=== PATIENT | female | born 1970 | race Caucasian/White ===

== ENCOUNTER 2017-03-13 00:57 | Inpatient (IN) | payer BC, OTHER ==
--- NOTE | 2017-03-13 01:05 | EDM.PDOC ---
ED HPI GENERAL MEDICAL PROBLEM - General Chief Complaint: Respiratory Problem Stated Complaint: COUGH AND CHEST PAIN Time Seen by Provider: 03/13/17 01:05 - History of Present Illness INITIAL COMMENTS - FREE TEXT/NARRATIVE: 46-year-old female presents emergency room with breathing difficulties. Patient states that she became short of breath about the time this month this is progressively been getting worse and it escalated this evening. The patient had an illness shortly after this started where she was coughing up thick sputum and at times it was blood-tinged. This has somewhat improved. However the cough continues she has very sharp chest pain aggravated by coughing and deep inspiration. The patient was using Percocet at home to try and control this. Patient uses her nebulizer with albuterol as needed this doesn't seem to be helping much and she uses her albuterol inhaler this does not seem to be helping much. Patient does not have nausea or vomiting associated with this. She has not been on any antibiotics. The patient is also noticed her blood sugars been more difficult to control. The patient did have some right leg pain about a week ago this lasted 3-4 days it was worse close to the groin anterior surface of the thigh but she had discomfort the full length of the leg. The patient has been using Percocet that she uses on a regular basis for her back for her chest and leg discomfort. Right Upper Chest Pain Score (Numeric/FACES): 10 - Related Data Allergies Allergy/AdvReac Type Severity Reaction Status Date / Time hydromorphone HCl Allergy Intermediate Itching Verified 03/13/17 01:06 [From Dilaudid] levofloxacin Allergy Unknown Cannot Verified 03/13/17 01:06 Remember peanut Allergy Swollen Verified 03/13/17 01:06 Tongue Home Meds: Home Meds Insulin Glarg,Human.Rec.Analog [Lantus] 120 units SUBCUT DAILY 05/18/14 [History ] metFORMIN [Glucophage] 1,000 mg PO DAILY 05/18/14 [History] metFORMIN [metFORMIN XR] 1,500 mg PO DAILY 05/18/14 [History] Albuterol Inhaler. 2 puff INH Q4H PRN 02/15/16 [History] Albuterol Sulfate 2.5 mg IH Q4H PRN #25 ml 02/15/16 [Rx] Zolpidem [Ambien] 10 mg PO BEDTIME PRN 02/15/16 [History] FLUoxetine [PROzac] 20 mg PO DAILY 03/13/17 [History] Insulin Regular, Human [Humulin R] 0 unit SQ BID 03/13/17 [History] oxyCODONE HCl/Acetaminophen [Percocet 10-325 mg Tablet] 1 each PO Q4H PRN [History] Past Medical History Respiratory History: Reports: Asthma Endocrine/Metabolic History: Reports: Diabetes, type I Social & Family History - Tobacco Use Smoking Status *Q: Never Smoker Second Hand Smoke Exposure: No - Alcohol Use Days Per Week of Alcohol Use: 0 - Recreational Drug Use Recreational Drug Use: No ED ROS GENERAL - Review of Systems Review Of Systems: See Below Constitutional: Reports: night sweats. Denies: fever, chills HEENT: Reports: No symptoms Respiratory: Reports: Shortness of Breath, Pleuritic Chest Pain, Cough, Sputum, Hemoptysis Cardiovascular: Reports: Chest pain. Denies: Edema, Palpitations GI/Abdominal: Reports: Abdominal pain (She had some intermittent abdominal discomfort usually after coughing hard) : Reports: no symptoms Musculoskeletal: Reports: back pain (A she believes this is getting worse from coughing) Neurological: Reports: No Symptoms ED EXAM, GENERAL - Physical Exam Exam: See Below Exam Limited By: No limitations General Appearance: alert, other (She has a painful cough) Eye Exam: bilateral eye: normal inspection Ears: normal external exam, normal canal, hearing grossly normal, normal TMs Nose: normal inspection, normal mucosa, no blood Throat/Mouth: Normal inspection, Normal lips, Normal teeth, Normal gums, Normal oropharynx, Normal voice, No airway compromise Head: atraumatic, normocephalic Neck: normal inspection, supple, non-tender, full range of motion. No: lymphadenopathy (L), lymphadenopathy (R) Respiratory/Chest: no respiratory distress, crackles, other (Breath sounds initially hard to hear but after a few deep breaths seemed okay she had some bibasilar crackles that improve with deep breathing she has discomfort with deep breathing). No: chest non-tender, rhonchi, wheezing, stridor, pleural rub Cardiovascular: regular rate, rhythm, no murmur, other (She has some large legs and cannot exclude edema) GI/Abdominal: normal bowel sounds, soft, non tender, no organomegaly, no distention, no abnormal bruit, no mass, other (Significant obesity) Course - Vital Signs Last Recorded V/S: Last Vital Signs Temp 36.6 C 03/13/17 01:02 Pulse 104 H 03/13/17 05:26 Resp 24 H 03/13/17 05:26 BP 110/61 03/13/17 05:26 Pulse Ox 97 03/13/17 05:26 - Orders/Labs/Meds Orders: Active Orders 24 hr Category Date Time Status Patient Status [ADT] Stat ADT 03/13/17 05:12 Ordered EKG Documentation Completion [RC] STAT Care 03/13/17 02:20 Active RT Aerosol Therapy [RC] ASDIRECTED Care 03/13/17 02:19 Active RT Aerosol Therapy [RC] ASDIRECTED Care 03/13/17 03:26 Ordered Ang Chest [CT] Stat Exams 03/13/17 02:31 Taken Chest 1V Frontal [CR] Stat Exams 03/13/17 01:16 Taken CBC W/O DIFF,HEMOGRAM [HEME] MOTH@0700 Lab 03/17/17 07:00 Ordered CBC W/O DIFF,HEMOGRAM [HEME] MOTH@0700 Lab 03/20/17 07:00 Ordered CBC W/O DIFF,HEMOGRAM [HEME] MOTH@0700 Lab 03/24/17 07:00 Ordered CBC W/O DIFF,HEMOGRAM [HEME] MOTH@0700 Lab 03/27/17 07:00 Ordered CBC W/O DIFF,HEMOGRAM [HEME] MOTH@0700 Lab 03/31/17 07:00 Ordered CBC W/O DIFF,HEMOGRAM [HEME] MOTH@0700 Lab 04/03/17 07:00 Ordered Sodium Chloride 0.9% [Normal Saline] 40 ml Med 03/13/17 03:30 Active IV ASDIRECTED Medication Orders Sodium Chloride (Normal Saline) 40 mls @ 4 mls/sec IV ASDIRECTED ELROY Last Admin: 03/13/17 03:32 Dose: 4 mls/sec Labs: Laboratory Tests 03/13/17 03/13/17 03/13/17 Range/Units 01:26 01:26 01:26 WBC 9.89 (3.98-10.04) K/mm3 RBC 5.42 H (3.98-5.22) M/mm3 Hgb 15.2 (11.2-15.7) gm/L Hct 45.3 H (34.1-44.9) % MCV 83.6 (79.4-94.8) fl MCH 28.0 (25.6-32.2) pg MCHC 33.6 (32.2-35.5) g/dl RDW Std Deviation 39.4 (36.4-46.3) fL Plt Count 340 (182-369) K/mm3 MPV 10.1 (9.4-12.3) fl Neutrophils % (Manual) 54 (40-60) % Band Neutrophils % 1 (0-10) % Lymphocytes % (Manual) 31 (20-40) % Atypical Lymphs % 0 % Monocytes % (Manual) 10 (2-10) % Eosinophils % (Manual) 4 (0.7-5.8) % Basophils % (Manual) 0 L (0.1-1.2) Platelet Estimate Adequate RBC Morph Comment Normal PT 9.7 (8.0-13.0) SECONDS INR 0.90 APTT 22 (22-36) SECONDS D-Dimer, Quantitative 0.70 H (0.19-0.59) mg/L Sodium 134 L (136-145) mEq/L Potassium 4.7 (3.5-5.1) mEq/L Chloride 100 (98-107) mEq/L Carbon Dioxide 22 (21-32) mEq/L Anion Gap 16.7 H (5-15) BUN 19 H (7-18) mg/dL Creatinine 1.1 H (0.55-1.02) mg/dL Est Cr Clr Drug Dosing 46.39 mL/min Estimated GFR (MDRD) 54 (>60) mL/min BUN/Creatinine Ratio 17.3 (14-18) Glucose 323 H (74-106) mg/dL Calcium 8.9 (8.5-10.1) mg/dL Total Bilirubin 0.4 (0.2-1.0) mg/dL AST 41 H (15-37) U/L ALT 59 (14-59) U/L Alkaline Phosphatase 109 (46-116) U/L Troponin I < 0.017 (0.00-0.056) ng/mL Total Protein 7.5 (6.4-8.2) g/dl Albumin 3.5 (3.4-5.0) g/dl Globulin 4.0 gm/dL Albumin/Globulin Ratio 0.9 L (1-2) Mycoplasma pneumon IgM Negative (NEGATIVE) Meds: Medications Generic Name Dose Route Start Last Admin Trade Name Milton PRN Reason Stop Dose Admin Sodium Chloride 40 mls @ 4 mls/sec 03/13/17 03:30 03/13/17 03:32 Normal Saline IV 4 mls/sec ASDIRECTED ELROY Administration Discontinued Medications Generic Name Dose Route Start Last Admin Trade Name Milton PRN Reason Stop Dose Admin Albuterol/Ipratropium 3 ml 03/13/17 02:19 03/13/17 02:25 Duoneb 3.0-0.5 Mg/3 Ml NEB 03/13/17 02:20 3 ml ONETIME ONE Administration Albuterol/Ipratropium 3 ml 03/13/17 03:26 03/13/17 03:33 Duoneb 3.0-0.5 Mg/3 Ml NEB 03/13/17 03:27 3 ml ONETIME ONE Administration Diphenhydramine HCl 25 mg 03/13/17 01:17 03/13/17 01:24 Benadryl IVPUSH 03/13/17 01:18 25 mg ONETIME ONE Administration Enoxaparin Sodium 100 mg 03/13/17 05:10 03/13/17 05:16 Lovenox SUBCUT 03/13/17 05:11 100 mg ONETIME ONE Administration Iopamidol 100 ml 03/13/17 02:54 03/13/17 03:29 Isovue-370 (76%) IVPUSH 03/13/17 02:55 100 ml ONETIME ONE Administration Iopamidol 40 ml 03/13/17 02:54 03/13/17 03:29 Isovue-370 (76%) IVPUSH 03/13/17 02:55 40 ml ONETIME ONE Administration Morphine Sulfate 2 mg 03/13/17 01:18 03/13/17 01:24 Morphine IVPUSH 03/13/17 01:19 2 mg ONETIME ONE Administration Morphine Sulfate 4 mg 03/13/17 02:17 03/13/17 02:21 Morphine IVPUSH 03/13/17 02:18 4 mg ONETIME ONE Administration - Re-Assessments/Exams Free Text/Narrative Re-Assessment/Exam: 03/13/17 02:30 Chest x-ray unremarkable labs pending 03/13/17 03:25 Awaiting CTA results. The patient did get a nebulizer treatment and thinks has helped significantly. She think she would benefit from another. Did check her breasts ounces really not wheezing breath sounds are somewhat diminished this could be secondary to her body habitus but we will attempt a second nebulizer. Did consider steroid therapy better blood sugars are high and generally do go up on steroids in the past but this may be needed. 03/13/17 05:29 CTA is not absolutely diagnostic is clearly no central or segmental pulmonary embolism however either due to motion artifact subsegmental pulmonary embolism cannot be excluded. I believe the patient is certainly at high risk for PE with her mild tachycardia mild tachypnea. Awaiting in the patient's leg pain that she had a week or so ago makes this a little more suspicious. The patient had a second nebulizer and this did help. Case discussed with our hospitalist Dr. Groves we will admit the patient start her on Lovenox anticipate lower leg Doppler and possibly repeat CTA Departure - Departure Time of Disposition: 05:05 Disposition: Admitted As Inpatient 67 Clinical Impression: Chest pain - My Orders Last 24 Hours: My Active Orders 03/13/17 01:16 Chest 1V Frontal [CR] Stat 03/13/17 02:19 RT Aerosol Therapy [RC] ASDIRECTED 03/13/17 02:20 EKG Documentation Completion [RC] STAT 03/13/17 02:31 Ang Chest [CT] Stat 03/13/17 03:26 RT Aerosol Therapy [RC] ASDIRECTED 03/13/17 03:30 Sodium Chloride 0.9% [Normal Saline] 40 ml IV ASDIRECTED 03/13/17 05:12 Patient Status [ADT] Stat 03/17/17 07:00 CBC W/O DIFF,HEMOGRAM [HEME] MOTH@0700 03/20/17 07:00 CBC W/O DIFF,HEMOGRAM [HEME] MOTH@0700 03/24/17 07:00 CBC W/O DIFF,HEMOGRAM [HEME] MOTH@0700 03/27/17 07:00 CBC W/O DIFF,HEMOGRAM [HEME] MOTH@0700 03/31/17 07:00 CBC W/O DIFF,HEMOGRAM [HEME] MOTH@0700 04/03/17 07:00 CBC W/O DIFF,HEMOGRAM [HEME] MOTH@0700 - Assessment/Plan Last 24 Hours: My Active Orders 03/13/17 01:16 Chest 1V Frontal [CR] Stat 03/13/17 02:19 RT Aerosol Therapy [RC] ASDIRECTED 03/13/17 02:20 EKG Documentation Completion [RC] STAT 03/13/17 02:31 Ang Chest [CT] Stat 03/13/17 03:26 RT Aerosol Therapy [RC] ASDIRECTED 03/13/17 03:30 Sodium Chloride 0.9% [Normal Saline] 40 ml IV ASDIRECTED 03/13/17 05:12 Patient Status [ADT] Stat 03/17/17 07:00 CBC W/O DIFF,HEMOGRAM [HEME] MOTH@0700 03/20/17 07:00 CBC W/O DIFF,HEMOGRAM [HEME] MOTH@0700 03/24/17 07:00 CBC W/O DIFF,HEMOGRAM [HEME] MOTH@0700 03/27/17 07:00 CBC W/O DIFF,HEMOGRAM [HEME] MOTH@0700 03/31/17 07:00 CBC W/O DIFF,HEMOGRAM [HEME] MOTH@0700 04/03/17 07:00 CBC W/O DIFF,HEMOGRAM [HEME] MOTH@07
[2017-03-13] MEDS ORDERED: diphenhydrAMINE 50 MG/ML SDV IVPUSH ONE (01:17)
[2017-03-13] MEDS ORDERED: Morphine 2 MG/ML Syringe IVPUSH ONE (01:18)
[2017-03-13] MEDS ORDERED: Morphine 4 MG/ML Syringe IVPUSH ONE (02:17)
[2017-03-13] MEDS ORDERED: Albuterol/Ipratropium 3.0-0.5 MG/3 ML Neb Soln NEB ONE ×2 (02:19→03:26)
[2017-03-13] MEDS ORDERED: Sodium Chloride 0.9% 60 ML IV ONE (02:54)
[2017-03-13] MEDS ORDERED: Iopamidol 755 Mg/ML 100 ML Bottle IVPUSH ONE (02:54)
[2017-03-13] MEDS ORDERED: Iopamidol 755 MG/ML 50 ML Bottle IVPUSH ONE (02:54)
[2017-03-13] MEDS ORDERED: Sodium Chloride 0.9% 40 ML IV SCH (03:30)
[2017-03-13] MEDS ORDERED: Enoxaparin 100 MG/1 ML Syringe SUBCUT ONE (05:10)
--- NOTE | 2017-03-13 05:47 | CT ---
CT chest Technique: Multiple axial sections were obtained to the chest was obtained pulmonary angiogram protocol. Intravenous contrast was therefore utilized. Comparison: Previous chest x-rays available dated earlier on the same day. Limitations: Artifact secondary to body habitus and less than optimal opacification of pulmonary arteries. Findings: There are are no filling defects being seen within the main or segmental pulmonary arteries. Smaller subsegmental pulmonary emboli could easily be missed. Mediastinum and hilar regions show no adenopathy or mass. No pericardial thickening is seen. Visualized upper abdominal structures are within normal limits. Lungs are clear. No pleural effusions or pneumothorax is seen. Bone window settings were reviewed which appear within normal limits for the patient's age. Impression: 1. Less than optimal study secondary to patient body habitus as well as less than optimal opacification of the pulmonary arteries. 2. No discrete filling defects seen to indicate pulmonary embolism within the main or segmental branches. Smaller subsegmental pulmonary emboli could easily be missed. If patient has strong symptoms for pulmonary embolism, treatment could be performed and repeat study in 48 hours. 3. No additional abnormality is identified on CT study of the chest. Diagnostic code #3 I agree with preliminary report issued by [facility] (preliminary report dictated on 03/13/17, 5:11 AM Central Time)
[2017-03-13] MEDS ORDERED: Morphine 2 MG/ML Syringe ONE (06:23)
[2017-03-13] MEDS: Morphine 2 MG/ML Syringe IVPUSH PRN ×2 (06:32→19:52)
[2017-03-13] MEDS ORDERED: 50% Dextrose in Water 50 ML Syringe IVPUSH PRN (07:19)
[2017-03-13] MEDS ORDERED: Albuterol 0.083% 2.5 MG/3 ML Neb Soln NEB PRN (07:20)
[2017-03-13] MEDS ORDERED: Magnesium Hydroxide 400 MG/5 ML Susp 30 ML Cup PO PRN (07:30)
[2017-03-13] MEDS ORDERED: Ondansetron 4 MG Tab.DIS PO PRN (07:30)
[2017-03-13] MEDS ORDERED: Ondansetron 4 MG/2 ML SDV IV PRN (07:30)
[2017-03-13] MEDS ORDERED: Docusate Sodium 100 MG Cap PO PRN (07:30)
--- NOTE | 2017-03-13 07:30 | CR ---
Chest: Frontal view of the chest was obtained. Comparison: Previous chest x-ray of 02/15/16. Heart size and mediastinum are within normal limits. Lungs are clear. Bony structures are grossly intact. Impression: 1. Nothing acute is identified on frontal chest x-ray. Diagnostic code #1
[2017-03-13] MEDS: Sodium Chloride 0.9% 1,000 ML IV SCH ×2 (07:34→18:53)
[2017-03-13] MEDS: Acetaminophen/oxyCODONE 325-5 MG Tab PO PRN (07:42)
[2017-03-13] MEDS: Albuterol/Ipratropium 3.0-0.5 MG/3 ML Neb Soln NEB SCH ×3 (08:30→20:33)
[2017-03-13] MEDS: Acetaminophen/oxyCODONE 325-5 MG Tab PO SCH ×3 (08:39→22:02)
[2017-03-13] MEDS: Insulin Detemir 100 Units/ML 3 ML Pen SUBCUT SCH ×2 (08:40→22:14)
[2017-03-13] MEDS: Insulin Aspart 100 Units/ML 3 ML Pen SUBCUT SCH ×4 (08:40→22:14)
[2017-03-13] MEDS: Azithromycin 500 MG in Sodium Chloride 0.9% 250 ML IV SCH (08:41)
[2017-03-13] MEDS: FLUoxetine 20 MG Cap PO SCH (08:43)
[2017-03-13] MEDS ORDERED: Famotidine 20 MG Tab PO SCH (09:00)
[2017-03-13] MEDS ORDERED: Magnesium Sulfate/Water 2 GM in Premix Bag 1 BAG IV ONE (09:39)
[2017-03-13] MEDS ORDERED: Metoprolol Tartrate 5 MG/5 ML SDV IVPUSH ONE (09:43)
[2017-03-13] MEDS ORDERED: Lidocaine 5% 700 MG Patch TOP SCH (09:45)
--- NOTE | 2017-03-13 10:00 | PCM.HP ---
H&P History of Present Illness - General Date of Service: 03/13/17 Admit Problem/Dx: Admission Diagnosis/Problem Admission Diagnosis/Problem Chest pain Source of Information: Patient, Old records History Limitations: Reports: No limitations - History of Present Illness Initial Comments - Free Text/Narative: Jessica is a 46yo female admitted to med/surg telemetry unit for atypical chest pain through the ER early this morning. She tells me she has been generally feeling unwell for 3 weeks with fatigue, generalized sensation of weakness, worsening of her usual chronic LBP, intermittent subjective fevers, chills and sweats. Blood sugars have been more elevated than usual, 200-300 range at home. She has been intermittently nauseous but no vomiting, diarrhea or abdominal pain. She reports chronic intermittent constipation from the percocet that she takes for her LBP, 2 tabs TID. The past 3 days she has developed a cough, productive the last two days and with worsening right sided chest pains the past 1-2 days. She reports the pain is stabbing in nature, feels "like it is going to drop me" when she coughs. She feels SOB with this and has had worsening sensation of ONEILL x 2 weeks as well. She has not been able to do much physically around the house other than go from couch or chair to bathroom or kitchen for at least the last week due to this SOB/ONEILL/fatigue. PMH is significant for IDDM requiring lantus 60units BID and high dose sliding scale coverage also, chronic LBP on narcotic pain medications daily, depression/ anxiety, asthma, obesity. She is a Full Code. Onset of Symptoms: Reports: gradual (3 weeks of feeling "sick", with worsening fatigue, cough, SOB, ONEILL, palpiatations worse x 2-3 days) Location: Reports: chest Quality: Reports: Stabbing (rt side of chest - worst with coughing spells) Severity: severe Improves with: Reports: Rest Worsens with: Reports: Other (coughing), Movement Associated Symptoms: Reports: chest pain, cough, cough w sputum, fever/chills, headaches, loss of appetite, shortness of breath. Denies: nausea/vomiting, rash , syncope Right Upper Chest Pain Score (Numeric/FACES): 8 - Related Data Allergies/Adverse Reactions: Allergies Allergy/AdvReac Type Severity Reaction Status Date / Time hydromorphone HCl Allergy Intermediate Itching Verified 03/13/17 01:06 [From Dilaudid] levofloxacin Allergy Unknown Cannot Verified 03/13/17 01:06 Remember peanut Allergy Swollen Verified 03/13/17 01:06 Tongue Home Medications: Home Meds Insulin Glarg,Human.Rec.Analog [Lantus] 120 units SUBCUT DAILY 05/18/14 [History ] metFORMIN [Glucophage] 1,000 mg PO DAILY 05/18/14 [History] metFORMIN [metFORMIN XR] 1,500 mg PO DAILY 05/18/14 [History] Albuterol Inhaler. 2 puff INH Q4H PRN 02/15/16 [History] Albuterol Sulfate 2.5 mg IH Q4H PRN #25 ml 02/15/16 [Rx] Zolpidem [Ambien] 10 mg PO BEDTIME PRN 02/15/16 [History] FLUoxetine [PROzac] 20 mg PO DAILY 03/13/17 [History] Insulin Regular, Human [Humulin R] 0 unit SQ BID 03/13/17 [History] oxyCODONE HCl/Acetaminophen [Percocet 10-325 mg Tablet] 1 each PO TID 03/13/17 [ History] Past Medical History HEENT History: Reports: Other (see below) Other HEENT History: Wears glasses, at home Respiratory History: Reports: Asthma, SOB Gastrointestinal History: Reports: Chronic constipation, GERD Genitourinary History: Reports: Pyelonephritis, Renal calculus, UTI, recurrent PORTFOLIO DIRECTOR History: Reports: Musculoskeletal History: Reports: Back pain, chronic, Neck pain, chronic, Other (see below) Other Musculoskeletal History: Right torn rotator cuff, not repaired Psychiatric History: Reports: Anxiety, Depression Endocrine/Metabolic History: Reports: Diabetes, type II, IDDM - Infectious Disease History Infectious Disease History: Reports: Chicken pox - Past Surgical History GI Surgical History: Reports: Colonoscopy, Other (see below) Other GI Surgeries/Procedures: Hernia repair with mesh Female Surgical History: Reports: section, Hysterectomy Social & Family History - Family History Family Medical History: Noncontributory - Tobacco Use Smoking Status *Q: Former Smoker Used Tobacco, but Quit: No Second Hand Smoke Exposure: Yes - Caffeine Use Caffeine Use: Reports: Coffee, Tea - Alcohol Use Days Per Week of Alcohol Use: 0 - Recreational Drug Use Recreational Drug Use: No H&P Review of Systems - Review of Systems: Review Of Systems: See Below General: Reports: fever (subjective at home x 2-3 days prior to admit), chills, weakness, fatigue (x 3+ weeks), decreased appetite HEENT: Reports: no symptoms Pulmonary: Reports: Shortness of Breath, Pleuritic Chest Pain, Cough Cardiovascular: Reports: chest pain, palpitations, dyspnea on exertion ( worsening over 2-3 wks), lightheadedness (x 2-3 days). Denies: orthopnea, syncope Gastrointestinal: Reports: Constipation (chronic), Nausea. Denies: Abdominal pain, Black stool, Bloody stool, Diarrhea, Hematochezia, Melena, Vomiting Genitourinary: Reports: no symptoms Musculoskeletal: Reports: back pain (chronic- takes 2 percocet TID at home), other (reports rt leg pain with ? swelling earlier in the week) Skin: Reports: no symptoms. Denies: rash Psychiatric: Reports: anxiety Neurological: Reports: No Symptoms Exam - Exam Exam: See Below - Vital Signs Vital Signs: Last Vital Signs Temp 98.2 F 03/13/17 06:18 Pulse 103 H 03/13/17 06:18 Resp 20 03/13/17 06:14 BP 112/45 L 03/13/17 06:14 Pulse Ox 95 03/13/17 08:31 Weight: 273 lb 8 oz - Exam Quality Assessment: DVT prophylaxis General: alert, oriented, cooperative, mild distress (pain to rt chest with coughing, acute on chronic back pain and anxious ) HEENT: Conjunctiva clear, EOMI, Hearing intact, Mucosa moist & pink, Nares patent, Posterior pharynx clear, Pupils equal, Pupils reactive Neck: supple, trachea midline Lungs: Normal respiratory effort, Decreased breath sounds (mid to lower lobes; no other adventitious sounds noted) Cardiovascular: regular rhythm, tachycardia (rate 110-120's during my exam) Abdomen: normal bowel sounds, soft, other (round, obese). No: guarding, rigidity, rebound, tenderness (Female) Exam: Deferred Rectal (Female) Exam: Deferred Extremities: edema (trace to ankles/pedal). No: calf tenderness Peripheral Pulses: 1+: dorsalis pedis (L), dorsalis pedis (R) Skin: warm, dry, intact Neurological: cranial nerves intact Neuro Extensive - Mental Status: alert, oriented x3, normal cognition, memory intact Neuro Extensive - Motor, Sensory, Reflexes: CN II-XII intact Psychiatric: alert, normal affect, normal mood, anxious (slightly anxious) - Patient Data Lab Results last 24 hrs: Laboratory Results - last 24 hr 03/13/17 03/13/17 03/13/17 Range/Units 06:30 07:51 08:10 WBC 10.19 H (3.98-10.04) K/mm3 RBC 4.92 (3.98-5.22) M/mm3 Hgb 13.6 (11.2-15.7) gm/L Hct 41.1 (34.1-44.9) % MCV 83.5 (79.4-94.8) fl MCH 27.6 (25.6-32.2) pg MCHC 33.1 (32.2-35.5) g/dl RDW Std Deviation 38.8 (36.4-46.3) fL Plt Count 399 H (182-369) K/mm3 MPV 9.6 (9.4-12.3) fl Neut % (Auto) 55.0 (34.0-71.1) % Lymph % (Auto) 33.5 (19.3-51.7) % Day % (Auto) 9.6 (4.7-12.5) % Eos % (Auto) 1.1 (0.7-5.8) Baso % (Auto) 0.4 (0.1-1.2) % Neut # (Auto) 5.61 (1.56-6.13) K/mm3 Lymph # (Auto) 3.41 (1.18-3.74) K/mm3 Day # (Auto) 0.98 H (0.24-0.36) K/mm3 Eos # (Auto) 0.11 (0.04-0.36) K/mm3 Baso # (Auto) 0.04 (0.01-0.08) K/mm3 Sodium (136-145) mEq/L Potassium (3.5-5.1) mEq/L Chloride (98-107) mEq/L Carbon Dioxide (21-32) mEq/L Anion Gap (5-15) BUN (7-18) mg/dL Creatinine (0.55-1.02) mg/dL Est Cr Clr Drug Dosing mL/min Estimated GFR (MDRD) (>60) mL/min BUN/Creatinine Ratio (14-18) Glucose (74-106) mg/dL POC Glucose 295 H (70-105) mg/dL Calcium (8.5-10.1) mg/dL Magnesium (1.8-2.4) mg/dl Troponin I (0.00-0.056) ng/mL C-Reactive Protein (<1.0) mg/dL B-Natriuretic Peptide (0-100) pg/mL Urine Color Yellow (Yellow) Urine Appearance Clear (Clear) Urine pH 5.5 (5.0-8.0) Ur Specific [place] 1.015 (1.005-1.030) Urine Protein Trace H (Negative) Urine Glucose (UA) 2+ H (Negative) Urine Ketones Trace H (Negative) Urine Occult Blood Negative (Negative) Urine Nitrite Negative (Negative) Urine Bilirubin Negative (Negative) Urine Urobilinogen 0.2 (0.2-1.0) Ur Leukocyte Esterase Negative (Negative) Urine RBC Not seen (0-5) /hpf Urine WBC 0-5 (0-5) /hpf Ur Epithelial Cells 0-5 (0-5) /hpf Urine Bacteria Few (FEW) /hpf Urine Mucus Not seen (FEW) /hpf 03/13/17 03/13/17 Range/Units 08:10 08:10 WBC (3.98-10.04) K/mm3 RBC (3.98-5.22) M/mm3 Hgb (11.2-15.7) gm/L Hct (34.1-44.9) % MCV (79.4-94.8) fl MCH (25.6-32.2) pg MCHC (32.2-35.5) g/dl RDW Std Deviation (36.4-46.3) fL Plt Count (182-369) K/mm3 MPV (9.4-12.3) fl Neut % (Auto) (34.0-71.1) % Lymph % (Auto) (19.3-51.7) % Day % (Auto) (4.7-12.5) % Eos % (Auto) (0.7-5.8) Baso % (Auto) (0.1-1.2) % Neut # (Auto) (1.56-6.13) K/mm3 Lymph # (Auto) (1.18-3.74) K/mm3 Day # (Auto) (0.24-0.36) K/mm3 Eos # (Auto) (0.04-0.36) K/mm3 Baso # (Auto) (0.01-0.08) K/mm3 Sodium 134 L (136-145) mEq/L Potassium 4.1 (3.5-5.1) mEq/L Chloride 100 (98-107) mEq/L Carbon Dioxide 24 (21-32) mEq/L Anion Gap 14.1 (5-15) BUN 18 (7-18) mg/dL Creatinine 0.9 (0.55-1.02) mg/dL Est Cr Clr Drug Dosing 56.70 mL/min Estimated GFR (MDRD) > 60 (>60) mL/min BUN/Creatinine Ratio 20.0 H (14-18) Glucose 297 H (74-106) mg/dL POC Glucose (70-105) mg/dL Calcium 8.6 (8.5-10.1) mg/dL Magnesium 1.6 L (1.8-2.4) mg/dl Troponin I < 0.017 (0.00-0.056) ng/mL C-Reactive Protein 1.0 (<1.0) mg/dL B-Natriuretic Peptide < 15 (0-100) pg/mL Urine Color (Yellow) Urine Appearance (Clear) Urine pH (5.0-8.0) Ur Specific [place] (1.005-1.030) Urine Protein (Negative) Urine Glucose (UA) (Negative) Urine Ketones (Negative) Urine Occult Blood (Negative) Urine Nitrite (Negative) Urine Bilirubin (Negative) Urine Urobilinogen (0.2-1.0) Ur Leukocyte Esterase (Negative) Urine RBC (0-5) /hpf Urine WBC (0-5) /hpf Ur Epithelial Cells (0-5) /hpf Urine Bacteria (FEW) /hpf Urine Mucus (FEW) /hpf Result Diagrams: 03/13/17 08:10 03/13/17 08:10 *Q Meaningful Use (ADM) - VTE *Q VTE Criteria *Q: - Stroke *Q Stroke Criteria *Q: - AMI *Q AMI Criteria *Q: - Problem List (1) Chest pain, pleuritic SNOMED Code(s): 0926021 ICD Code: R07.81 - PLEURODYNIA Status: Acute Priority: High Current Visit: Yes (2) IDDM (insulin dependent diabetes mellitus) SNOMED Code(s): 54070783 ICD Code: E11.9 - TYPE 2 DIABETES MELLITUS WITHOUT COMPLICATIONS; Z79.4 - MCFP (CURRENT) USE OF INSULIN Status: Chronic Priority: High Current Visit: Yes (3) Obesity SNOMED Code(s): 364452053 ICD Code: E66.9 - OBESITY, UNSPECIFIED Status: Chronic Priority: High Current Visit: Yes Qualifiers: Obesity type: unspecified obesity type Obesity severity: morbid Qualified Code(s): E66.01 - Morbid (severe) obesity due to excess calories (4) Tachycardia SNOMED Code(s): 0494323 ICD Code: R00.0 - TACHYCARDIA, UNSPECIFIED Status: Acute Priority: High Current Visit: Yes Problem List Initiated/Reviewed/Updated: Yes Orders Last 24hrs: Active Orders 24 hr Category Date Time Status Patient Status [ADT] Routine ADT 03/13/17 07:29 Active Acapella [RT Chest Physiotherapy] [RC] Q2HWA Care 03/13/17 07:21 Active Antiembolic Devices [RC] 09,21 Care 03/13/17 07:32 Active Blood Glucose Check, Bedside [RC] QIDACANDBED Care 03/13/17 06:55 Active Cardiac Monitoring [RC] CONTINUOUS Care 03/13/17 07:30 Active Height and Weight [RC] 04 Care 03/13/17 07:30 Active Intake and Output [RC] QSHIFT Care 03/13/17 07:30 Active Oxygen Therapy [RC] PRN Care 03/13/17 07:29 Active Oxygen Therapy [RC] PRN Care 03/13/17 07:30 Active RT Aerosol Therapy [RC] .PRN Care 03/13/17 07:20 Active RT Incentive Spirometry [RC] Q2HWA Care 03/13/17 07:21 Active Up With Assistance [RC] QSHIFT Care 03/13/17 06:28 Active VTE/DVT Education [RC] DAILY Care 03/13/17 07:30 Active Vital Signs [RC] Q4H Care 03/13/17 07:29 Active Consult to Case Management [CONS] Routine Cons 03/13/17 07:23 Active Consult to Diabetic Nurse Specialist [CONS] Routine Cons 03/13/17 07:24 Active Consult to Sap Consultant [CONS] Routine Cons 03/13/17 07:26 Active Consult to Occupational Therapy [OT Evaluation and Cons 03/13/17 07:23 Active Treatment] [CONS] Routine Consult to Car Lubricator [CONS] Routine Cons 03/13/17 07:23 Active PT Evaluation and Treatment [CONS] Routine Cons 03/13/17 07:23 Active ADA Diabetic [[place] [employer] Diet] [DIET Diet 03/13/17 Breakfast Active ] Heart Healthy Diet [DIET] Diet 03/13/17 Lunch Active Venous Doppler Lwr Ext Bi [US] Routine Exams 03/13/17 06:45 Taken A1C [GLYCOSYLATED HEMOGLOBIN,HGBA1C] [CHEM] Routine Lab 03/13/17 09:42 Ordered CULTURE SPUTUM + SMEAR [RM] Routine Lab 03/13/17 06:50 Uncollected STREP PNEUMONIAE ANTIGEN [MREF] Routine Lab 03/13/17 06:49 Ordered TROPONIN I [CHEM] Timed Lab 03/13/17 12:00 Ordered Acetaminophen/oxyCODONE [Percocet 325-5 MG] Med 03/13/17 09:00 Active 2 tab PO TID Albuterol [Proventil Neb Soln] Med 03/13/17 07:20 Active 2.5 mg NEB Q6HRRT PRN Albuterol/Ipratropium [DuoNeb 3.0-0.5 MG/3 ML] Med 03/13/17 09:00 Active 3 ml NEB Q6HRRT Azithromycin [Zithromax] 500 mg Med 03/13/17 08:00 Active Sodium Chloride 0.9% [Normal Saline] 250 ml IV Q24H Dextrose 50% in Water Med 03/13/17 07:19 Active 50 ml IVPUSH ASDIRECTED PRN Docusate Sodium [Colace] Med 03/13/17 07:30 Active 100 mg PO BID PRN FLUoxetine [PROzac] Med 03/13/17 09:00 Active 20 mg PO DAILY Famotidine [Pepcid] Med 03/13/17 09:00 Active 20 mg PO DAILY Insulin Aspart [NovoLOG] Med 03/13/17 11:00 Active See Protocol SUBCUT QIDACANDBED Insulin Detemir [Levemir] Med 03/13/17 09:00 Active 60 unit SUBCUT BID Ketorolac [Toradol] Med 03/13/17 09:45 Ordered 30 mg IVPUSH Q6H Lidocaine 5% [Lidoderm 5%] Med 03/13/17 09:45 Ordered 700 mg TOP Q24H Magnesium Hydroxide [Milk of Magnesia] Med 03/13/17 07:30 Active 30 ml PO Q12H PRN Magnesium Sulfate/Water [Magnesium Sulfate 2 GM in Med 03/13/17 09:39 Ordered Water 50 ML] 2 gm Premix Bag 1 bag IV ONETIME Metoprolol Tartrate [Lopressor] Med 03/13/17 09:43 Once 5 mg IVPUSH ONETIME ONE Morphine Med 03/13/17 06:19 Active 2 mg IVPUSH Q3H PRN Ondansetron [Zofran ODT] Med 03/13/17 07:30 Active 4 mg PO Q4H PRN Ondansetron [Zofran] Med 03/13/17 07:30 Active 4 mg IV Q4H PRN Sodium Chloride 0.9% [Normal Saline] 1,000 ml Med 03/13/17 07:00 Active IV ASDIRECTED SCD [Sequential Compression Device] [OM.PC] Routine Oth 03/13/17 08:20 Ordered SCD [Sequential Compression Device] [OM.PC] Routine Oth 03/13/17 08:21 Ordered Code Status [Resuscitation Status] Routine Resus Stat 03/13/17 06:27 Ordered Medication Orders Albuterol (Proventil Neb Soln) 2.5 mg NEB Q6HRRT PRN PRN Reason: SOB/wheezing Albuterol/Ipratropium (Duoneb 3.0-0.5 Mg/3 Ml) 3 ml NEB Q6HRRT [facility] Last Admin: 03/13/17 08:30 Dose: 3 ml Dextrose/Water (Dextrose 50% In Water) 50 ml IVPUSH ASDIRECTED PRN PRN Reason: Hypoglycemia Docusate Sodium (Colace) 100 mg PO BID PRN PRN Reason: Constipation Famotidine (Pepcid) 20 mg PO DAILY [facility] Last Admin: 03/13/17 08:40 Dose: 20 mg Fluoxetine HCl (Prozac) 20 mg PO DAILY [facility] Last Admin: 03/13/17 08:43 Dose: 20 mg Sodium Chloride (Normal Saline) 1,000 mls @ 100 mls/hr IV ASDIRECTED [facility] Last Admin: 03/13/17 07:34 Dose: 100 mls/hr Azithromycin 500 mg/ Sodium (Chloride) 250 mls @ 250 mls/hr IV Q24H [facility] Last Admin: 03/13/17 08:41 Dose: 250 mls/hr Magnesium Sulfate 2 gm/ Premix 50 mls @ 25 mls/hr IV ONETIME ONE Stop: 03/13/17 11:38 Insulin Aspart (Novolog) 0 unit SUBCUT QIDACANDBED [facility] PRN Reason: Protocol Last Admin: 03/13/17 08:40 Dose: 25 units Insulin Detemir (Levemir) 60 unit SUBCUT BID [facility] Last Admin: 03/13/17 08:40 Dose: 60 units Ketorolac Tromethamine (Toradol) 30 mg IVPUSH Q6H [facility] Stop: 03/13/17 21:46 Lidocaine (Lidoderm 5%) 700 mg TOP Q24H [facility] Magnesium Hydroxide (Milk Of Magnesia) 30 ml PO Q12H PRN PRN Reason: Constipation Morphine Sulfate (Morphine) 2 mg IVPUSH Q3H PRN PRN Reason: Pain Last Admin: 03/13/17 06:32 Dose: 2 mg Ondansetron HCl (Zofran Odt) 4 mg PO Q4H PRN PRN Reason: nausea, able to take PO Ondansetron HCl (Zofran) 4 mg IV Q4H PRN PRN Reason: Nausea/Vomiting Oxycodone/Acetaminophen (Percocet 325-5 Mg) 2 tab PO TID [facility] Last Admin: 03/13/17 08:39 Dose: 2 tab Assessment/Plan Comment:: I/P: Pleuritic rt sided chest pain: etiology uncertain at this time-- suspect ? small PE vs acute bronchitis with pleurisy -CTA negative but inconclusive for small vessels- consider repeat in 2 days -DVT study of bilat LE is negative -Lovenox SQ -Zithromax for antiinflammatory effect -Toradol Q6 hrs x 3 doses -Pain medication PRN - takes percocet 2 po TID at home so will expect narcotic tolerance -Consider steroid for antiinflammatory but d/t uncontrolled DM with worsened sugars over the past 3 weeks and high insulin requirements will try to avoid -Troponins x 2 negative -Risks: obesity, recent long car travel (to and from [place]), sedentary, feeling unwell x 3 weeks, chronic LBP, IDDM Tachycardia: -Sinus tachycardia -b/p WNL to borderline hypotensive -Cont on tele -Follow troponins- negative thus far -Lopressor PRN for HR >130bpm -Echo ordered today IDDM: -A1C today -AC and HS accuchecks -Cont home insulin doses- 60 units lantus BID with sliding scale-- home dose is very high for sliding scale -CDE consult -Sap Consultant consult -ADA/heart healthy diet Obesity: -Sap Consultant consult -Diet as above Other: CM/SW for assist with DC planning PT/OT- deconditioned GI prophylax DVT prophylax: SCD's and lovenox Cont other home meds Patient is Full Code status
[2017-03-13] MEDS: Ketorolac 30 MG/ML SDV IVPUSH SCH ×3 (11:00→22:08)
--- NOTE | 2017-03-13 11:13 | US ---
Bilateral lower extremity deep venous ultrasound: Duplex and color flow imaging was obtained of the right and left common femoral, proximal greater saphenous, superficial femoral, popliteal, posterior tibial and peroneal veins. Findings: Normal phasic flow, augmentation and compression are seen. Impression: 1. No findings of deep venous thrombosis are seen within either the right or left lower extremity. Diagnostic code #1
[2017-03-13] MEDS ORDERED: Enoxaparin 120 MG/0.8 ML Syringe SUBCUT SCH (12:15)
[2017-03-13] MEDS ORDERED: Budesonide 0.5 MG/2 ML Neb Susp NEB SCH ×2 (12:15→15:00)
[2017-03-13] MEDS: Budesonide 0.5 MG/2 ML Neb Susp NEB SCH (20:33)
[2017-03-13] MEDS ORDERED: Rosuvastatin 10 MG Tab PO SCH (21:00)
[2017-03-13] MEDS: Famotidine 20 MG Tab PO SCH (22:02)
[2017-03-13] MEDS: Enoxaparin 120 MG/0.8 ML Syringe SUBCUT SCH (22:02)
[2017-03-14] MEDS: Albuterol/Ipratropium 3.0-0.5 MG/3 ML Neb Soln NEB SCH ×3 (03:16→14:15)
[2017-03-14] MEDS: Sodium Chloride 0.9% 1,000 ML IV SCH (05:10)
[2017-03-14] MEDS: Insulin Aspart 100 Units/ML 3 ML Pen SUBCUT SCH ×2 (06:53→11:54)
[2017-03-14] MEDS: Budesonide 0.5 MG/2 ML Neb Susp NEB SCH (08:25)
--- NOTE | 2017-03-14 08:27 | CR ---
Chest: Two views of the chest were obtained. Comparison: Previous chest x-ray of 03/13/17. Heart size and mediastinum are normal. Lungs are clear. Bony structures are unremarkable. Impression: 1. Nothing acute is identified on two-view chest x-ray. Diagnostic code #1
[2017-03-14] MEDS: Insulin Detemir 100 Units/ML 3 ML Pen SUBCUT SCH (10:02)
[2017-03-14] MEDS: Azithromycin 500 MG in Sodium Chloride 0.9% 250 ML IV SCH (10:02)
[2017-03-14] MEDS: Enoxaparin 120 MG/0.8 ML Syringe SUBCUT SCH (10:05)
[2017-03-14] MEDS: Acetaminophen/oxyCODONE 325-5 MG Tab PO PRN (10:06)
[2017-03-14] MEDS: FLUoxetine 20 MG Cap PO SCH (10:06)
[2017-03-14] MEDS: Famotidine 20 MG Tab PO SCH (10:06)
[2017-03-14] MEDS: Morphine 2 MG/ML Syringe IVPUSH PRN (12:18)
--- NOTE | 2017-03-14 12:55 | PCM.PN ---
- General Info Date of Service: 03/14/17 Admission Dx/Problem (Free Text): Admission Diagnosis/Problem Admission Diagnosis/Problem Chest pain Patient is seen this morning with present in room, as well as nurses, Domitila and Mahnaz. Patient continues to have "excruciating" right sided chest pain, worse with coughing and inspiration. Repeat CXR this am is unremarkable, no rib fx noted. She is getting zithromax, neb/rt tx's, pain medications. She reports "maybe 25% " improvement of the pain since yesterday. Nursing confirmed percocet dosing with her pharmacy this morning; one tab TID. Yesterday she told nursing she was taking 2 tabs TID at home and this morning told nursing she was taking 3 tabs TID at home. I decreased her dose to one tab TID. She is upset about pain medication regimen now. During my visit with her this morning she tells me she has a pain contract with her pain management doctor in [place], this is the first I or any nurses on Med/Surg unit, or Dr. Groves have heard about a pain contract existing. Functional Status: Reports: tolerating diet, ambulating, urinating - Review of Systems General: Denies: Fever HEENT: Reports: no symptoms Pulmonary: Reports: shortness of breath, pleuritic chest pain (rt sided with inspiration and coughing), cough. Denies: sputum, hemoptysis Cardiovascular: Reports: No Symptoms Gastrointestinal: Reports: No symptoms Genitourinary: Reports: no symptoms Musculoskeletal: Reports: back pain (chronic) Skin: Reports: no symptoms Neurological: Reports: No Symptoms Psychiatric: Reports: no symptoms, anxiety, agitation (she is irritated and agitated when talking about pain medications/pain contract, states "why am I even here if I can't get my pain under control". ), other (patient has unrealistic expectations re: pain medication regimen and management. She has chronic pain and is on pain contract, is expecting pain contol here when she does not have pain control at home. Has told various stories to different people re: pain medication dosing and just now stating she has pain contract.) - Patient Data Vitals - most recent: Last Vital Signs Temp 98.2 F 03/14/17 08:26 Pulse 83 03/14/17 08:26 Resp 16 03/14/17 08:26 BP 104/65 03/14/17 08:26 Pulse Ox 97 03/14/17 08:34 Weight - most recent: 282 lb 4.8 oz I&O - last 24 hours: Intake & Output 03/13/17 03/14/17 03/14/17 22:59 06:59 14:59 Intake Total 865 482 420 Output Total 575 Balance 290 482 420 Lab Results last 24 hrs: Laboratory Results - last 24 hr 03/13/17 03/13/17 03/13/17 Range/Units 12:57 17:07 22:13 WBC (3.98-10.04) K/mm3 RBC (3.98-5.22) M/mm3 Hgb (11.2-15.7) gm/L Hct (34.1-44.9) % MCV (79.4-94.8) fl MCH (25.6-32.2) pg MCHC (32.2-35.5) g/dl RDW Std Deviation (36.4-46.3) fL Plt Count (182-369) K/mm3 MPV (9.4-12.3) fl Neut % (Auto) (34.0-71.1) % Lymph % (Auto) (19.3-51.7) % [place] % (Auto) (4.7-12.5) % Eos % (Auto) (0.7-5.8) Baso % (Auto) (0.1-1.2) % Neut # (Auto) (1.56-6.13) K/mm3 Lymph # (Auto) (1.18-3.74) K/mm3 [place] # (Auto) (0.24-0.36) K/mm3 Eos # (Auto) (0.04-0.36) K/mm3 Baso # (Auto) (0.01-0.08) K/mm3 Sodium (136-145) mEq/L Potassium (3.5-5.1) mEq/L Chloride (98-107) mEq/L Carbon Dioxide (21-32) mEq/L Anion Gap (5-15) BUN (7-18) mg/dL Creatinine (0.55-1.02) mg/dL Est Cr Clr Drug Dosing mL/min Estimated GFR (MDRD) (>60) mL/min BUN/Creatinine Ratio (14-18) Glucose (74-106) mg/dL POC Glucose 237 H 301 H (70-105) mg/dL Calcium (8.5-10.1) mg/dL Magnesium (1.8-2.4) mg/dl Troponin I < 0.017 (0.00-0.056) ng/mL C-Reactive Protein (<1.0) mg/dL 03/14/17 03/14/17 03/14/17 Range/Units 05:38 05:38 05:38 WBC 6.14 (3.98-10.04) K/mm3 RBC 4.45 (3.98-5.22) M/mm3 Hgb 12.2 (11.2-15.7) gm/L Hct 37.9 (34.1-44.9) % MCV 85.2 (79.4-94.8) fl MCH 27.4 (25.6-32.2) pg MCHC 32.2 (32.2-35.5) g/dl RDW Std Deviation 38.9 (36.4-46.3) fL Plt Count 346 (182-369) K/mm3 MPV 10.0 (9.4-12.3) fl Neut % (Auto) 49.1 (34.0-71.1) % Lymph % (Auto) 36.0 (19.3-51.7) % [place] % (Auto) 9.8 (4.7-12.5) % Eos % (Auto) 4.2 (0.7-5.8) Baso % (Auto) 0.7 (0.1-1.2) % Neut # (Auto) 3.02 (1.56-6.13) K/mm3 Lymph # (Auto) 2.21 (1.18-3.74) K/mm3 [place] # (Auto) 0.60 H (0.24-0.36) K/mm3 Eos # (Auto) 0.26 (0.04-0.36) K/mm3 Baso # (Auto) 0.04 (0.01-0.08) K/mm3 Sodium 136 (136-145) mEq/L Potassium 4.3 (3.5-5.1) mEq/L Chloride 103 (98-107) mEq/L Carbon Dioxide 22 (21-32) mEq/L Anion Gap 15.3 H (5-15) BUN 22 H (7-18) mg/dL Creatinine 0.8 (0.55-1.02) mg/dL Est Cr Clr Drug Dosing 63.79 mL/min Estimated GFR (MDRD) > 60 (>60) mL/min BUN/Creatinine Ratio 27.5 H (14-18) Glucose 266 H (74-106) mg/dL POC Glucose (70-105) mg/dL Calcium 8.0 L (8.5-10.1) mg/dL Magnesium 2.0 (1.8-2.4) mg/dl Troponin I (0.00-0.056) ng/mL C-Reactive Protein 1.4 H* (<1.0) mg/dL 03/14/17 03/14/17 Range/Units 06:52 11:19 WBC (3.98-10.04) K/mm3 RBC (3.98-5.22) M/mm3 Hgb (11.2-15.7) gm/L Hct (34.1-44.9) % MCV (79.4-94.8) fl MCH (25.6-32.2) pg MCHC (32.2-35.5) g/dl RDW Std Deviation (36.4-46.3) fL Plt Count (182-369) K/mm3 MPV (9.4-12.3) fl Neut % (Auto) (34.0-71.1) % Lymph % (Auto) (19.3-51.7) % [place] % (Auto) (4.7-12.5) % Eos % (Auto) (0.7-5.8) Baso % (Auto) (0.1-1.2) % Neut # (Auto) (1.56-6.13) K/mm3 Lymph # (Auto) (1.18-3.74) K/mm3 [place] # (Auto) (0.24-0.36) K/mm3 Eos # (Auto) (0.04-0.36) K/mm3 Baso # (Auto) (0.01-0.08) K/mm3 Sodium (136-145) mEq/L Potassium (3.5-5.1) mEq/L Chloride (98-107) mEq/L Carbon Dioxide (21-32) mEq/L Anion Gap (5-15) BUN (7-18) mg/dL Creatinine (0.55-1.02) mg/dL Est Cr Clr Drug Dosing mL/min Estimated GFR (MDRD) (>60) mL/min BUN/Creatinine Ratio (14-18) Glucose (74-106) mg/dL POC Glucose 224 H 219 H (70-105) mg/dL Calcium (8.5-10.1) mg/dL Magnesium (1.8-2.4) mg/dl Troponin I (0.00-0.056) ng/mL C-Reactive Protein (<1.0) mg/dL Vivek Results last 24 hrs: Microbiology 03/13/17 06:30 Streptococcus pneumoniae Antigen (M - Final Urine Med Orders - Current: Current Medications Hydrocodone Bitart/Acetaminophen (Vass 325-10 Mg) 1 tab PO TID ELROY Albuterol (Proventil Neb Soln) 2.5 mg NEB Q6HRRT PRN PRN Reason: SOB/wheezing Albuterol/Ipratropium (Duoneb 3.0-0.5 Mg/3 Ml) 3 ml NEB Q6HRRT [facility] Last Admin: 03/14/17 08:25 Dose: 3 ml Budesonide (Pulmicort) 0.5 mg NEB BID [facility] Last Admin: 03/14/17 08:25 Dose: 0.5 mg Dextrose/Water (Dextrose 50% In Water) 50 ml IVPUSH ASDIRECTED PRN PRN Reason: Hypoglycemia Docusate Sodium (Colace) 100 mg PO BID PRN PRN Reason: Constipation Last Admin: 03/13/17 22:06 Dose: 100 mg Enoxaparin Sodium (Lovenox) 120 mg SUBCUT BID [facility] Last Admin: 03/14/17 10:05 Dose: 120 mg Famotidine (Pepcid) 20 mg PO BID [facility] Last Admin: 03/14/17 10:06 Dose: 20 mg Fluoxetine HCl (Prozac) 20 mg PO DAILY [facility] Last Admin: 03/14/17 10:06 Dose: 20 mg Insulin Aspart (Novolog) 0 unit SUBCUT QIDACANDBED [facility] PRN Reason: Protocol Last Admin: 03/14/17 11:54 Dose: 20 units Insulin Detemir (Levemir) 60 unit SUBCUT BID [facility] Last Admin: 03/14/17 10:02 Dose: 60 units Lidocaine (Lidoderm 5%) 700 mg TOP Q24H [facility] Last Admin: 03/13/17 11:03 Dose: 700 mg Magnesium Hydroxide (Milk Of Magnesia) 30 ml PO Q12H PRN PRN Reason: Constipation Miscellaneous Information (Remove Patch) 0 ea TRDERM Q24H [facility] Last Admin: 03/13/17 22:17 Dose: 1 ea Morphine Sulfate (Morphine) 2 mg IVPUSH Q3H PRN PRN Reason: Pain Last Admin: 03/14/17 12:18 Dose: 2 mg Ondansetron HCl (Zofran Odt) 4 mg PO Q4H PRN PRN Reason: nausea, able to take PO Ondansetron HCl (Zofran) 4 mg IV Q4H PRN PRN Reason: Nausea/Vomiting Rosuvastatin Calcium (Crestor) 10 mg PO BEDTIME [facility] Last Admin: 03/13/17 22:02 Dose: Not Given Discontinued Medications Albuterol/Ipratropium (Duoneb 3.0-0.5 Mg/3 Ml) 3 ml NEB ONETIME ONE Stop: 03/13/17 02:20 Last Admin: 03/13/17 02:25 Dose: 3 ml Albuterol/Ipratropium (Duoneb 3.0-0.5 Mg/3 Ml) 3 ml NEB ONETIME ONE Stop: 03/13/17 03:27 Last Admin: 03/13/17 03:33 Dose: 3 ml Budesonide (Pulmicort) 0.5 mg NEB BIDRT [facility] Last Admin: 03/13/17 12:51 Dose: Not Given Budesonide (Pulmicort) 0.5 mg NEB BIDRT [facility] Last Admin: 03/13/17 14:48 Dose: 0.5 mg Diphenhydramine HCl (Benadryl) 25 mg IVPUSH ONETIME ONE Stop: 03/13/17 01:18 Last Admin: 03/13/17 01:24 Dose: 25 mg Enoxaparin Sodium (Lovenox) 100 mg SUBCUT ONETIME ONE Stop: 03/13/17 05:11 Last Admin: 03/13/17 05:16 Dose: 100 mg Enoxaparin Sodium (Lovenox) 120 mg SUBCUT Q12HR [facility] Last Admin: 03/13/17 12:51 Dose: Not Given Famotidine (Pepcid) 20 mg PO DAILY [facility] Last Admin: 03/13/17 08:40 Dose: 20 mg Sodium Chloride (Normal Saline) 40 mls @ 4 mls/sec IV ASDIRECTED [facility] Last Admin: 03/13/17 03:32 Dose: 4 mls/sec Sodium Chloride (Normal Saline) 1,000 mls @ 100 mls/hr IV ASDIRECTED [facility] Last Admin: 03/14/17 05:10 Dose: 100 mls/hr Azithromycin 500 mg/ Sodium (Chloride) 250 mls @ 250 mls/hr IV Q24H [facility] Last Admin: 03/14/17 10:02 Dose: 250 mls/hr Magnesium Sulfate 2 gm/ Premix 50 mls @ 25 mls/hr IV ONETIME ONE Stop: 03/13/17 11:38 Last Admin: 03/13/17 10:58 Dose: 25 mls/hr Iopamidol (Isovue-370 (76%)) 100 ml IVPUSH ONETIME ONE Stop: 03/13/17 02:55 Last Admin: 03/13/17 03:29 Dose: 100 ml Iopamidol (Isovue-370 (76%)) 40 ml IVPUSH ONETIME ONE Stop: 03/13/17 02:55 Last Admin: 03/13/17 03:29 Dose: 40 ml Ketorolac Tromethamine (Toradol) 30 mg IVPUSH Q6H [facility] Stop: 03/13/17 21:46 Last Admin: 03/13/17 22:08 Dose: 30 mg Metoprolol Tartrate (Lopressor) 5 mg IVPUSH ONETIME ONE Stop: 03/13/17 09:44 Last Admin: 03/13/17 11:21 Dose: 5 mg Morphine Sulfate (Morphine) 2 mg IVPUSH ONETIME ONE Stop: 03/13/17 01:19 Last Admin: 03/13/17 01:24 Dose: 2 mg Morphine Sulfate (Morphine) 4 mg IVPUSH ONETIME ONE Stop: 03/13/17 02:18 Last Admin: 03/13/17 02:21 Dose: 4 mg Morphine Sulfate (Morphine) Confirm Administered Dose 2 mg .ROUTE .STK-MED ONE Stop: 03/13/17 06:24 Last Admin: 03/13/17 06:50 Dose: Not Given Oxycodone/Acetaminophen (Percocet 325-5 Mg) 1 tab PO Q4H PRN PRN Reason: Pain Last Admin: 03/14/17 10:06 Dose: 1 tab Oxycodone/Acetaminophen (Percocet 325-5 Mg) 2 tab PO TID ELROY Last Admin: 03/13/17 22:02 Dose: 2 tab - Exam Quality Assessment: DVT prophylaxis General: alert, oriented, no acute distress, other (resting comfortably in bed when talking, does not appear SOB during our conversation. Appears comfortable but states pain is "excrutiating" to her right side/chest wall. Sitting with right leg up on bed, left leg down, again appears very comfortable. ) HEENT: Pupils equal, Pupils reactive, EOMI, Mucous membr. moist/pink Neck: supple Lungs: Clear to auscultation, Normal respiratory effort Cardiovascular: Regular Rate, Regular Rhythm, Other (decreased heart tones ). No: No Murmurs Abdomen: bowel sounds present, soft (Female) Exam: Deferred Back Exam: normal inspection Extremities: no edema, no calf tenderness Peripheral Pulses: 1+: dorsalis pedis (L), dorsalis pedis (R) Skin: warm, dry Neurological: no new focal deficit Psy/Mental Status: alert, anxious, agitated - Problem List & Annotations (1) Chest pain, pleuritic SNOMED Code(s): 7291530 Code(s): R07.81 - PLEURODYNIA Status: Acute Priority: High Current Visit: Yes (2) IDDM (insulin dependent diabetes mellitus) SNOMED Code(s): 12065896 Code(s): E11.9 - TYPE 2 DIABETES MELLITUS WITHOUT COMPLICATIONS; Z79.4 - RETOUCHER (CURRENT) USE OF INSULIN Status: Chronic Priority: High Current Visit: Yes (3) Obesity SNOMED Code(s): 409560966 Code(s): E66.9 - OBESITY, UNSPECIFIED Status: Chronic Priority: High Current Visit: Yes Qualifiers: Obesity type: unspecified obesity type Obesity severity: morbid Qualified Code(s): E66.01 - Morbid (severe) obesity due to excess calories (4) Tachycardia SNOMED Code(s): 0451337 Code(s): R00.0 - TACHYCARDIA, UNSPECIFIED Status: Acute Priority: High Current Visit: Yes (5) Chronic low back pain SNOMED Code(s): 836934783 Code(s): M54.5 - LOW BACK PAIN; G89.29 - OTHER CHRONIC PAIN Status: Chronic Priority: Medium Current Visit: No Onset Date: 05/18/14 (6) Pain management contract agreement SNOMED Code(s): 790679839, 208124524 Code(s): Z02.89 - ENCOUNTER FOR OTHER ADMINISTRATIVE EXAMINATIONS Status: Chronic Priority: High Current Visit: No Annotation/Comment:: In place with Dr. Unger in [place] - Problem List Review Problem List Initiated/Reviewed/Updated: Yes - My Orders Last 24 Hours: My Active Orders 03/13/17 21:00 Budesonide [Pulmicort] 0.5 mg NEB BID Enoxaparin [Lovenox] 120 mg SUBCUT BID Famotidine [Pepcid] 20 mg PO BID Rosuvastatin [Crestor] 10 mg PO BEDTIME 03/13/17 21:45 Remove Patch 0 ea TRDERM Q24H 03/14/17 12:42 Chest PE [Ang Chest] [CT] Routine 03/14/17 15:00 Acetaminophen/HYDROcodone [Vass 325-10 MG] 1 tab PO TID 03/15/17 05:00 MAGNESIUM [CHEM] DAILY 03/15/17 05:11 BASIC METABOLIC PANEL,BMP [CHEM] AM C-REACTIVE PROTEIN [CHEM] AM CBC WITH AUTO DIFF [HEME] AM 03/16/17 05:00 MAGNESIUM [CHEM] DAILY 03/16/17 05:11 BASIC METABOLIC PANEL,BMP [CHEM] AM C-REACTIVE PROTEIN [CHEM] AM CBC WITH AUTO DIFF [HEME] AM 03/17/17 05:00 MAGNESIUM [CHEM] DAILY 03/17/17 05:11 BASIC METABOLIC PANEL,BMP [CHEM] AM C-REACTIVE PROTEIN [CHEM] AM CBC WITH AUTO DIFF [HEME] AM - Plan Plan:: I/P: Pleuritic rt sided chest pain: etiology uncertain at this time-- suspect ? small PE vs acute bronchitis with pleurisy -CTA negative but inconclusive for small vessels- consider repeat study -As patient continues to have pleuritic chest pain/sensation of SOB--- reviewed with Dr. Groves, will proceed with repeat of CTA today; if negative will discharge home today. -DVT study of bilat LE is negative -Lovenox SQ-- I have recommended BID dosing for presumed PE tx/coverage. Patient is refusing to have BID dosing and states that "I want to have more concrete evidence that there is something there" before taking BID dosing but is agreeable to dosing once daily. Reviewed risks that if there is small PE (s) present she will not be receiving recommended treatment for this condition. She voices understanding. -Zithromax for antiinflammatory effect -Toradol Q6 hrs x 3 doses then DC -Pain medication PRN - takes percocet 2 po TID at home so will expect narcotic tolerance----as noted earlier in note; today she tells nursing this home dose is 3 tabs TID however nursing confirms with her pharmacy this is 1 tab TID; patient is not forthcoming with information as tells me today that she has a pain contract and sees pain management which was not known by any staff or documented up until now. -Consider steroid for antiinflammatory but d/t uncontrolled DM with worsened sugars over the past 3 weeks and high insulin requirements will try to avoid -Troponins x 2 negative -Risks: obesity, recent long car travel (to and from [place]), sedentary, feeling unwell x 3 weeks, chronic LBP, IDDM Tachycardia: RESOLVED -Sinus tachycardia -b/p WNL to borderline hypotensive -Cont on tele -Follow troponins- negative thus far -Lopressor PRN for HR >130bpm -Echo ordered -- results still pending IDDM: -A1C 11.3 -AC and HS accuchecks -Cont home insulin doses- 60 units lantus BID with sliding scale-- home dose is very high for sliding scale -CDE consult- will cont as outpatient also -Containers Sales Representative consult -ADA/heart healthy diet Obesity: -Containers Sales Representative consult -Diet as above Other: CM/SW for assist with DC planning PT/OT- deconditioned GI prophylax DVT prophylax: SCD's and lovenox Cont other home meds Patient is Full Code status
[2017-03-14] MEDS ORDERED: Iopamidol 755 MG/ML 50 ML Bottle IVPUSH ONE (13:28)
[2017-03-14] MEDS ORDERED: Sodium Chloride 0.9% 10 ML Syringe FLUSH PRN (13:28)
[2017-03-14] MEDS ORDERED: Iopamidol 755 Mg/ML 100 ML Bottle IVPUSH ONE (13:28)
[2017-03-14] MEDS ORDERED: Sodium Chloride 0.9% 100 ML IV SCH (13:30)
--- NOTE | 2017-03-14 14:08 | CT ---
CT chest Technique: Multiple axial sections were obtained through the chest. Intravenous contrast was utilized. Study has been performed as a pulmonary angiogram protocol. Comparison: Previous chest CT of 03/13/17. Findings: Pulmonary arteries are moderately well-opacified. No filling defects are seen to indicate pulmonary embolism. Mediastinum and hilar regions show no adenopathy or mass. Aorta appears within normal limits. Fatty infiltration is seen within the liver. Lungs are clear. No pleural effusions are seen. Bone window settings were reviewed which appear within normal limits for the patient's age. Impression: 1. No findings of pulmonary embolism. 2. Incidental fatty infiltration within the liver. Other portions of the CT exam of the chest are unremarkable. Diagnostic code #2
[2017-03-14] MEDS ORDERED: Acetaminophen/HYDROcodone 325-10 MG Tab PO SCH (15:00)
--- NOTE | 2017-03-14 15:38 | PCM.DCSUM1 ---
Discharge Summary - Hospital Course Brief History: This is a 46 yo female with past medical hx/o DM with poorly controlled, Chronic Back Pain, RAD/Asthma and Morbid Obesity who comes in with c/o atypical chest pain for 3 weeks now associated with fatigue, generalized weakness, worsening of her usual chronic LBP, intermittent subjective fevers, chills and sweats. Patient was admitted for atypical chest pain w/ presumptive PE on CT scan. - Discharge Data Discharge Date: 03/14/17 Discharge Disposition: Home, Self-Care 01 Condition: Good - Discharge Diagnosis/Problem(s) (1) Chest wall pain SNOMED Code(s): 478354142 ICD Code: R07.89 - OTHER CHEST PAIN Status: Resolved (2) Tachycardia SNOMED Code(s): 7203850 ICD Code: R00.0 - TACHYCARDIA, UNSPECIFIED Status: Resolved (3) HLD (hyperlipidemia) SNOMED Code(s): 08909522 ICD Code: E78.5 - HYPERLIPIDEMIA, UNSPECIFIED Status: Acute Priority: High Qualifiers: Hyperlipidemia type: mixed hyperlipidemia Qualified Code(s): E78.2 - Mixed hyperlipidemia (4) IDDM (insulin dependent diabetes mellitus) SNOMED Code(s): 30779880 ICD Code: E11.9 - TYPE 2 DIABETES MELLITUS WITHOUT COMPLICATIONS; Z79.4 - FDC (CURRENT) USE OF INSULIN Status: Chronic Priority: High (5) Obesity SNOMED Code(s): 304714865 ICD Code: E66.9 - OBESITY, UNSPECIFIED Status: Chronic Priority: High Qualifiers: Obesity type: unspecified obesity type Obesity severity: morbid Qualified Code(s): E66.01 - Morbid (severe) obesity due to excess calories (6) Medical non-compliance SNOMED Code(s): 345330693 ICD Code: Z91.19 - PATIENT'S NONCOMPLIANCE W OTH MEDICAL TREATMENT AND REGIMEN Status: Acute - Patient Summary/Data Operative Procedure(s) Performed: None Complications: None Consults: Consultations 03/13/17 07:23 Consult to Case Management [CONS] Routine Consult to Occupational Therapy [OT Evaluation and Treatment] [CONS] Routine Consult to Corporate Secretary [CONS] Routine PT Evaluation and Treatment [CONS] Routine 03/13/17 07:24 Consult to Diabetic Nurse Specialist [CONS] Routine 03/13/17 07:26 Consult to Printer Slotter Operator [CONS] Routine Hospital Course: Patient was primarily admitted for atypical chest pain. CXR and basic cardiac exam were all normal. Her initial CT scan was indeterminate for PE but she was treated for presumptive PE. A repeat of her CT scan showed no PE but with a finding of Fatty Liver. Putting it all together, patient has MSK chest pain. On this admission patient as found to have hyperglycemia, felt to be secondary to medical and dietary non-compliance. Diabetic education was consulted and her insulin regimen was adjusted. Her hospital course was complicated by her non-compliance. She was refusing a lot of medications. She also did not want to her statin given that she lipids were abnormal. At some point, she exhibited "drug seeking behavior" by asking more pain pills than what she was actually prescribed for her chronic back pain. But overall, she is ready to go today. She will be discharged with low dose 81 mg po ASA daily #30 for cardio-protection, Pravachol 40 mg po daily #30 for HLD , Aleve 440 mg po Q8 PRN #15 for MSK Pain, Lidoderm Patch 700 mg daily for #30 for chronic back pain and Stool Softener 1 tab po BID #60 for constipation. She was also provided insulin supply from the hospital. On the day of discharge, I spent over 40 minutes educating her about he importance of medical and dietary compliance. I also stressed lifestyle modifications (i.e. eat properly, exercise regularly and weight loss) is the chris to maintaining good health or in her case, improving her self esteem and overall health. Patient was advised to call her PCP for any issues or concerns. If she is unable to her him/her, she is to go to the nearest medical facility. The patient expressed understanding and in agreement with the plans as discussed above. All questions were answered. - Patient Instructions Diet: Heart Healthy Diet, Usual Diet as Tolerated, Diabetic Diet, Weight Loss Diet Activity: As Tolerated Driving: May Drive Today Showering/Bathing: May Shower Notify Provider of: Fever, Increased Pain, Drainage, Nausea and/or Vomiting Other/Special Instructions: - Please take all medications as directed. - Check and log your sugar twice a day and three times a week; show this on your outpatient follow up appointment with your doctor. - Dietary and medical compliance are important in maintaning a good health. - Make sure you exercise , eat properly and lose weight. - Call your doctor for any questions or concerns - Discharge Plan Prescriptions/Med Rec: Naproxen Sodium [Aleve] 440 mg PO Q8HR PRN #15 capsule PRN Reason: Pain Insulin Detemir [Levemir] 60 unit SUBCUT Q12HR #1 box Aspirin 81 mg PO BEDTIME #30 tab.chew Insulin Aspart [NovoLOG] 100 unit SUBCUT BIDAC #2 box Lidocaine 5% [Lidoderm 5%] 700 mg TOP Q24H #30 patch Pravastatin [Pravachol] 40 mg PO BEDTIME #30 tablet Sennosides/Docusate Sodium [Stool Softener Tablet] 1 each PO BID #60 tablet Home Medications: Home Meds metFORMIN [Glucophage XR] 1,500 mg PO DAILY 05/18/14 [History] metFORMIN [Glucophage] 1,000 mg PO DAILY 05/18/14 [History] Albuterol Inhaler. 2 puff INH Q4H PRN 02/15/16 [History] Albuterol Sulfate 2.5 mg IH Q4H PRN #25 ml 02/15/16 [Rx] Zolpidem [Ambien] 10 mg PO BEDTIME PRN 02/15/16 [History] FLUoxetine [PROzac] 20 mg PO DAILY 03/13/17 [History] oxyCODONE HCl/Acetaminophen [Percocet 10-325 mg Tablet] 1 each PO TID 03/13/17 [ History] Aspirin 81 mg PO BEDTIME #30 tab.chew 03/14/17 [Rx] Budesonide [Pulmicort] 0.5 mg NEB BIDRT 03/14/17 [History] Insulin Aspart [NovoLOG] 100 unit SUBCUT BIDAC #2 box 03/14/17 [Rx] Insulin Detemir [Levemir] 60 unit SUBCUT Q12HR #1 box 03/14/17 [Rx] Lidocaine 5% [Lidoderm 5%] 700 mg TOP Q24H #30 patch 03/14/17 [Rx] Naproxen Sodium [Aleve] 440 mg PO Q8HR PRN #15 capsule 03/14/17 [Rx] Pravastatin [Pravachol] 40 mg PO BEDTIME #30 tablet 03/14/17 [Rx] Sennosides/Docusate Sodium [Stool Softener Tablet] 1 each PO BID #60 tablet [Rx] Patient Handouts: Chest Wall Pain, [id number], Obesity, Blood Glucose Monitoring, Adult Referrals: Guillermo Elam MD [Ordering Only Provider] - 03/21/17 (patient already has this appt. scheduled and time) Darryl,BILLY Means [Physician Doughnut Batter Mixer] - 03/20/17 10:00 am (Please follow-up with Bhavya Andrews March 20, 2017 at 10:00 am. Please come by 09:45 am for registration. ) - Discharge Summary/Plan Comment DC Time >30 min.: Yes (40 mins) Discharge Summary/Plan Comment: Discharge to Home - General Info Date of Service: 03/14/17 Admission Dx/Problem (Free Text: Admission Diagnosis/Problem Admission Diagnosis/Problem Chest pain Patient is seen this morning with present in room, as well as nurses, Domitila and Mahnaz. Patient continues to have "excruciating" right sided chest pain, worse with coughing and inspiration. Repeat CXR this am is unremarkable, no rib fx noted. She is getting zithromax, neb/rt tx's, pain medications. She reports "maybe 25% " improvement of the pain since yesterday. Nursing confirmed percocet dosing with her pharmacy this morning; one tab TID. Yesterday she told nursing she was taking 2 tabs TID at home and this morning told nursing she was taking 3 tabs TID at home. I decreased her dose to one tab TID. She is upset about pain medication regimen now. During my visit with her this morning she tells me she has a pain contract with her pain management doctor in [place], this is the first I or any nurses on Med/Surg unit, or Dr. Groves have heard about a pain contract existing. Subjective Update: Follow Up Functional Status: Reports: pain controlled, tolerating diet, ambulating, urinating. Denies: new symptoms - Review of Systems General: Denies: Fever, Weakness, Fatigue, Malaise, Chills HEENT: Reports: no symptoms Pulmonary: Reports: no symptoms Cardiovascular: Reports: Other (Chest Wall Pain) Gastrointestinal: Reports: No symptoms, Nausea, Vomiting. Denies: Abdominal pain, Constipation, Diarrhea Genitourinary: Reports: no symptoms Musculoskeletal: Reports: back pain, joint pain Skin: Reports: no symptoms Neurological: Denies: Confusion, Seizure, Difficulty Walking, Weakness Psychiatric: Denies: confusion, depression, anxiety, cravings, hallucinations Systems Review Comment: Patient has been non-compliant with medical care. She refused some medications. She feels better today. Her repeat CT scan shows no PE ecept for fatty liver. Patient is comfortable going home today. - Patient Data Vitals - Most Recent: Last Vital Signs Temp 36.8 C 03/14/17 13:11 Pulse 88 03/14/17 13:11 Resp 14 03/14/17 13:11 BP 143/84 H 03/14/17 13:11 Pulse Ox 96 03/14/17 14:15 Weight - Most Recent: 128.049 kg I&O - Last 24 hours: Intake & Output 03/14/17 03/14/17 03/14/17 06:59 14:59 22:59 Intake Total 482 420 Balance 482 420 Lab Results - Last 24 hrs: Laboratory Results - last 24 hr 03/13/17 03/13/17 03/14/17 Range/Units 17:07 22:13 05:38 WBC 6.14 (3.98-10.04) K/mm3 RBC 4.45 (3.98-5.22) M/mm3 Hgb 12.2 (11.2-15.7) gm/L Hct 37.9 (34.1-44.9) % MCV 85.2 (79.4-94.8) fl MCH 27.4 (25.6-32.2) pg MCHC 32.2 (32.2-35.5) g/dl RDW Std Deviation 38.9 (36.4-46.3) fL Plt Count 346 (182-369) K/mm3 MPV 10.0 (9.4-12.3) fl Neut % (Auto) 49.1 (34.0-71.1) % Lymph % (Auto) 36.0 (19.3-51.7) % [place] % (Auto) 9.8 (4.7-12.5) % Eos % (Auto) 4.2 (0.7-5.8) Baso % (Auto) 0.7 (0.1-1.2) % Neut # (Auto) 3.02 (1.56-6.13) K/mm3 Lymph # (Auto) 2.21 (1.18-3.74) K/mm3 [place] # (Auto) 0.60 H (0.24-0.36) K/mm3 Eos # (Auto) 0.26 (0.04-0.36) K/mm3 Baso # (Auto) 0.04 (0.01-0.08) K/mm3 Sodium (136-145) mEq/L Potassium (3.5-5.1) mEq/L Chloride (98-107) mEq/L Carbon Dioxide (21-32) mEq/L Anion Gap (5-15) BUN (7-18) mg/dL Creatinine (0.55-1.02) mg/dL Est Cr Clr Drug Dosing mL/min Estimated GFR (MDRD) (>60) mL/min BUN/Creatinine Ratio (14-18) Glucose (74-106) mg/dL POC Glucose 237 H 301 H (70-105) mg/dL Calcium (8.5-10.1) mg/dL Magnesium (1.8-2.4) mg/dl C-Reactive Protein (<1.0) mg/dL 03/14/17 03/14/17 03/14/17 Range/Units 05:38 05:38 06:52 WBC (3.98-10.04) K/mm3 RBC (3.98-5.22) M/mm3 Hgb (11.2-15.7) gm/L Hct (34.1-44.9) % MCV (79.4-94.8) fl MCH (25.6-32.2) pg MCHC (32.2-35.5) g/dl RDW Std Deviation (36.4-46.3) fL Plt Count (182-369) K/mm3 MPV (9.4-12.3) fl Neut % (Auto) (34.0-71.1) % Lymph % (Auto) (19.3-51.7) % [place] % (Auto) (4.7-12.5) % Eos % (Auto) (0.7-5.8) Baso % (Auto) (0.1-1.2) % Neut # (Auto) (1.56-6.13) K/mm3 Lymph # (Auto) (1.18-3.74) K/mm3 [place] # (Auto) (0.24-0.36) K/mm3 Eos # (Auto) (0.04-0.36) K/mm3 Baso # (Auto) (0.01-0.08) K/mm3 Sodium 136 (136-145) mEq/L Potassium 4.3 (3.5-5.1) mEq/L Chloride 103 (98-107) mEq/L Carbon Dioxide 22 (21-32) mEq/L Anion Gap 15.3 H (5-15) BUN 22 H (7-18) mg/dL Creatinine 0.8 (0.55-1.02) mg/dL Est Cr Clr Drug Dosing 63.79 mL/min Estimated GFR (MDRD) > 60 (>60) mL/min BUN/Creatinine Ratio 27.5 H (14-18) Glucose 266 H (74-106) mg/dL POC Glucose 224 H (70-105) mg/dL Calcium 8.0 L (8.5-10.1) mg/dL Magnesium 2.0 (1.8-2.4) mg/dl C-Reactive Protein 1.4 H* (<1.0) mg/dL 03/14/17 Range/Units 11:19 WBC (3.98-10.04) K/mm3 RBC (3.98-5.22) M/mm3 Hgb (11.2-15.7) gm/L Hct (34.1-44.9) % MCV (79.4-94.8) fl MCH (25.6-32.2) pg MCHC (32.2-35.5) g/dl RDW Std Deviation (36.4-46.3) fL Plt Count (182-369) K/mm3 MPV (9.4-12.3) fl Neut % (Auto) (34.0-71.1) % Lymph % (Auto) (19.3-51.7) % [place] % (Auto) (4.7-12.5) % Eos % (Auto) (0.7-5.8) Baso % (Auto) (0.1-1.2) % Neut # (Auto) (1.56-6.13) K/mm3 Lymph # (Auto) (1.18-3.74) K/mm3 [place] # (Auto) (0.24-0.36) K/mm3 Eos # (Auto) (0.04-0.36) K/mm3 Baso # (Auto) (0.01-0.08) K/mm3 Sodium (136-145) mEq/L Potassium (3.5-5.1) mEq/L Chloride (98-107) mEq/L Carbon Dioxide (21-32) mEq/L Anion Gap (5-15) BUN (7-18) mg/dL Creatinine (0.55-1.02) mg/dL Est Cr Clr Drug Dosing mL/min Estimated GFR (MDRD) (>60) mL/min BUN/Creatinine Ratio (14-18) Glucose (74-106) mg/dL POC Glucose 219 H (70-105) mg/dL Calcium (8.5-10.1) mg/dL Magnesium (1.8-2.4) mg/dl C-Reactive Protein (<1.0) mg/dL FABI Results - Last 24 hrs: Microbiology 03/13/17 06:30 Streptococcus pneumoniae Antigen (M - Final Urine Med Orders - Current: Current Medications Hydrocodone Bitart/Acetaminophen ([place] 325-10 Mg) 1 tab PO TID [facility] Last Admin: 03/14/17 15:07 Dose: 1 tab Albuterol (Proventil Neb Soln) 2.5 mg NEB Q6HRRT PRN PRN Reason: SOB/wheezing Albuterol/Ipratropium (Duoneb 3.0-0.5 Mg/3 Ml) 3 ml NEB Q6HRRT [facility] Last Admin: 03/14/17 14:15 Dose: 3 ml Budesonide (Pulmicort) 0.5 mg NEB BID [facility] Last Admin: 03/14/17 08:25 Dose: 0.5 mg Dextrose/Water (Dextrose 50% In Water) 50 ml IVPUSH ASDIRECTED PRN PRN Reason: Hypoglycemia Docusate Sodium (Colace) 100 mg PO BID PRN PRN Reason: Constipation Last Admin: 03/13/17 22:06 Dose: 100 mg Enoxaparin Sodium (Lovenox) 120 mg SUBCUT BID [facility] Last Admin: 03/14/17 10:05 Dose: 120 mg Famotidine (Pepcid) 20 mg PO BID [facility] Last Admin: 03/14/17 10:06 Dose: 20 mg Fluoxetine HCl (Prozac) 20 mg PO DAILY [facility] Last Admin: 03/14/17 10:06 Dose: 20 mg Sodium Chloride (Normal Saline) 100 mls @ 65 mls/hr IV ASDIRECTED ELROY Stop: 03/14/17 18:00 Last Admin: 03/14/17 13:41 Dose: 65 mls/hr Insulin Aspart (Novolog) 0 unit SUBCUT QIDACANDBED [facility] PRN Reason: Protocol Last Admin: 03/14/17 11:54 Dose: 20 units Insulin Detemir (Levemir) 60 unit SUBCUT BID [facility] Last Admin: 03/14/17 10:02 Dose: 60 units Lidocaine (Lidoderm 5%) 700 mg TOP Q24H [facility] Last Admin: 03/13/17 11:03 Dose: 700 mg Magnesium Hydroxide (Milk Of Magnesia) 30 ml PO Q12H PRN PRN Reason: Constipation Miscellaneous Information (Remove Patch) 0 ea TRDERM Q24H [facility] Last Admin: 03/13/17 22:17 Dose: 1 ea Morphine Sulfate (Morphine) 2 mg IVPUSH Q3H PRN PRN Reason: Pain Last Admin: 03/14/17 12:18 Dose: 2 mg Ondansetron HCl (Zofran Odt) 4 mg PO Q4H PRN PRN Reason: nausea, able to take PO Ondansetron HCl (Zofran) 4 mg IV Q4H PRN PRN Reason: Nausea/Vomiting Rosuvastatin Calcium (Crestor) 10 mg PO BEDTIME [facility] Last Admin: 03/13/17 22:02 Dose: Not Given Sodium Chloride (Saline Flush) 10 ml FLUSH ONETIME PRN PRN Reason: IV FLUSH Stop: 03/14/17 18:00 Last Admin: 03/14/17 13:41 Dose: 10 ml Discontinued Medications Albuterol/Ipratropium (Duoneb 3.0-0.5 Mg/3 Ml) 3 ml NEB ONETIME ONE Stop: 03/13/17 02:20 Last Admin: 03/13/17 02:25 Dose: 3 ml Albuterol/Ipratropium (Duoneb 3.0-0.5 Mg/3 Ml) 3 ml NEB ONETIME ONE Stop: 03/13/17 03:27 Last Admin: 03/13/17 03:33 Dose: 3 ml Budesonide (Pulmicort) 0.5 mg NEB BIDRT [facility] Last Admin: 03/13/17 12:51 Dose: Not Given Budesonide (Pulmicort) 0.5 mg NEB BIDRT [facility] Last Admin: 03/13/17 14:48 Dose: 0.5 mg Diphenhydramine HCl (Benadryl) 25 mg IVPUSH ONETIME ONE Stop: 03/13/17 01:18 Last Admin: 03/13/17 01:24 Dose: 25 mg Enoxaparin Sodium (Lovenox) 100 mg SUBCUT ONETIME ONE Stop: 03/13/17 05:11 Last Admin: 03/13/17 05:16 Dose: 100 mg Enoxaparin Sodium (Lovenox) 120 mg SUBCUT Q12HR [facility] Last Admin: 03/13/17 12:51 Dose: Not Given Famotidine (Pepcid) 20 mg PO DAILY [facility] Last Admin: 03/13/17 08:40 Dose: 20 mg Sodium Chloride (Normal Saline) 40 mls @ 4 mls/sec IV ASDIRECTED [facility] Last Admin: 03/13/17 03:32 Dose: 4 mls/sec Sodium Chloride (Normal Saline) 1,000 mls @ 100 mls/hr IV ASDIRECTED [facility] Last Admin: 03/14/17 05:10 Dose: 100 mls/hr Azithromycin 500 mg/ Sodium (Chloride) 250 mls @ 250 mls/hr IV Q24H [facility] Last Admin: 03/14/17 10:02 Dose: 250 mls/hr Magnesium Sulfate 2 gm/ Premix 50 mls @ 25 mls/hr IV ONETIME ONE Stop: 03/13/17 11:38 Last Admin: 03/13/17 10:58 Dose: 25 mls/hr Iopamidol (Isovue-370 (76%)) 100 ml IVPUSH ONETIME ONE Stop: 03/13/17 02:55 Last Admin: 03/13/17 03:29 Dose: 100 ml Iopamidol (Isovue-370 (76%)) 40 ml IVPUSH ONETIME ONE Stop: 03/13/17 02:55 Last Admin: 03/13/17 03:29 Dose: 40 ml Iopamidol (Isovue-370 (76%)) 100 ml IVPUSH ONETIME ONE Stop: 03/14/17 13:29 Last Admin: 03/14/17 13:41 Dose: 100 ml Iopamidol (Isovue-370 (76%)) 50 ml IVPUSH ONETIME ONE Stop: 03/14/17 13:29 Last Admin: 03/14/17 13:41 Dose: 50 ml Ketorolac Tromethamine (Toradol) 30 mg IVPUSH Q6H [facility] Stop: 03/13/17 21:46 Last Admin: 03/13/17 22:08 Dose: 30 mg Metoprolol Tartrate (Lopressor) 5 mg IVPUSH ONETIME ONE Stop: 03/13/17 09:44 Last Admin: 03/13/17 11:21 Dose: 5 mg Morphine Sulfate (Morphine) 2 mg IVPUSH ONETIME ONE Stop: 03/13/17 01:19 Last Admin: 03/13/17 01:24 Dose: 2 mg Morphine Sulfate (Morphine) 4 mg IVPUSH ONETIME ONE Stop: 03/13/17 02:18 Last Admin: 03/13/17 02:21 Dose: 4 mg Morphine Sulfate (Morphine) Confirm Administered Dose 2 mg .ROUTE .STK-MED ONE Stop: 03/13/17 06:24 Last Admin: 03/13/17 06:50 Dose: Not Given Oxycodone/Acetaminophen (Percocet 325-5 Mg) 1 tab PO Q4H PRN PRN Reason: Pain Last Admin: 03/14/17 10:06 Dose: 1 tab Oxycodone/Acetaminophen (Percocet 325-5 Mg) 2 tab PO TID [facility] Last Admin: 03/13/17 22:02 Dose: 2 tab - Exam General: Reports: alert, oriented, cooperative, no acute distress, mild distress , other (Morbidly Obese) HEENT: Reports: Pupils equal, Pupils reactive, EOMI, Mucous membr. moist/pink Neck: Reports: supple, trachea midline, no JVD Lungs: Reports: Decreased breath sounds, Wheezing (mild) Cardiovascular: Reports: Regular Rate, Regular Rhythm, Other (Tender to chest on palpation) Abdomen: Reports: bowel sounds present, soft, no tenderness, no distension, other (Obese) (Female) Exam: Deferred Rectal (Female) Exam: Deferred Extremities: Reports: no edema, normal pulses, no tenderness/swelling, no clubbing, no cyanosis, no calf tenderness Skin: Reports: warm, dry, intact Neurological: Reports: no new focal deficit Psy/Mental Status: Reports: alert, normal affect, normal mood *Q Meaningful Use (DIS) - VTE *Q VTE Criteria *Q: - Stroke *Q Stroke Criteria *Q: - AMI *Q AMI Criteria *Q:
[2017-03-14 16:08] VITALS: BP 107/61
[2017-03-14] MEDS ORDERED: Insulin Aspart 100 Units/ML 3 ML Pen SUBCUT SCH (17:00)
[2017-03-14] MEDS ORDERED: Insulin Detemir 100 Units/ML 3 ML Pen SUBCUT SCH (21:00)
== END 2017-03-14 17:05 | disposition home or self-care (01) | DRG 203 ==
LOC: JD.ED 00:57 → JD.MS 05:12
PROVIDERS: ADMIT Internal Medicine; ATTEND Internal Medicine
DX: R07.89 Other chest pain (principal); E11.65 Type 2 diabetes mellitus with hyperglycemia; Z79.4 Long term (current) use of insulin; Z79.84 Long term (current) use of oral hypoglycemic drugs; E66.01 Morbid (severe) obesity due to excess calories; R00.0 Tachycardia, unspecified; G89.29 Other chronic pain; M54.5 Low back pain; J45.909 Unspecified asthma, uncomplicated; E78.5 Hyperlipidemia, unspecified; Z88.6 Allergy status to analgesic agent; Z91.010 Allergy to peanuts; Z79.899 Other long term (current) drug therapy; K21.9 Gastro-esophageal reflux disease without esophagitis; M54.2 Cervicalgia; F32.9 Major depressive disorder, single episode, unspecified; F41.9 Anxiety disorder, unspecified; Z87.891 Personal history of nicotine dependence; Z68.41 Body mass index [BMI] 40.0-44.9, adult; Z76.5 Malingerer [conscious simulation]; Z91.19 Patient's noncompliance with other medical treatment and regimen
CPT/HCPCS: 36415; 71010; 71010-26; 71020; 71020-26; 71275; 71275-26; 80048; 80053; 80061; 81001; 82962; 83036; 83735; 83880; 84484; 85025; 85379; 85610; 85730; 86140; 86738; 87899; 93005; 93306; 93970; 93970-26; 94640-76; 94664; 94667; 94761; 96372; 96374; 96375; 96376; 97116-GP; 97163-GP; 97167-GO; 97535-GO; 99285; 99285-25; A9270-GY; J0456; J1200; J1650; J1815-GY; J1885; J2270; J3475; J3490; J7030; J7040; J7050; Q9967

== ENCOUNTER 2017-09-07 12:24 | Emergency (ER) | payer OTHER, BC ==
[2017-09-07 12:38] VITALS: BP 161/104
--- NOTE | 2017-09-07 12:45 | EDM.PDOC ---
ED HPI GENERAL MEDICAL PROBLEM - General Chief Complaint: Back Pain or Injury Stated Complaint: BACK PAIN Time Seen by Provider: 09/07/17 12:45 - History of Present Illness INITIAL COMMENTS - FREE TEXT/NARRATIVE: 47-year-old female presents emergency room with back pain. This is been getting worse over the last several days. The patient has a severe back pain for the last 3 years. She has numbness and tingling into her right great toe. She recently had an MRI that confirmed a bulging disc with nerve compression she is awaiting approval from insurance company to get a steroid back injections she has had these in the past and the have helped however it has made her diabetes little worse. It has been recommended the patient have bariatric surgery for obesity she's been a little reluctant to do this and she is somewhat reluctant for back surgery at this time. The patient uses Percocet 3 times daily at home and uses Flexeril as needed however she has not used it in the last couple weeks. Her graft at this point patient is complaining of pain across her lower back and pain down both Botox and posterior thighs she has radicular pain into her right great toe. No loss of bladder or bowel control. Lower Back Pain Score (Numeric/FACES): 10 - Related Data Allergies Allergy/AdvReac Type Severity Reaction Status Date / Time hydromorphone HCl Allergy Intermediate Itching Verified 03/13/17 01:06 [From Dilaudid] levofloxacin Allergy Unknown Cannot Verified 03/13/17 01:06 Remember peanut Allergy Swollen Verified 03/13/17 01:06 Tongue Home Meds: Home Meds metFORMIN [Glucophage XR] 1,500 mg PO DAILY 05/18/14 [History] Albuterol Inhaler. 2 puff INH Q4H PRN 02/15/16 [History] Albuterol Sulfate 2.5 mg IH Q4H PRN #25 ml 02/15/16 [Rx] FLUoxetine [PROzac] 20 mg PO DAILY 03/13/17 [History] oxyCODONE HCl/Acetaminophen [Percocet 10-325 mg Tablet] 1 each PO TID 03/13/17 [ History] Aspirin 81 mg PO BEDTIME #30 tab.chew 03/14/17 [Rx] Budesonide [Pulmicort] 0.5 mg NEB BIDRT PRN 03/14/17 [History] Insulin Aspart [NovoLOG] 20 unit SUBCUT BIDAC 09/07/17 [History] Past Medical History HEENT History: Reports: Other (See Below) Other HEENT History: Wears glasses, at home Respiratory History: Reports: Asthma, SOB Gastrointestinal History: Reports: Chronic Constipation, GERD Genitourinary History: Reports: Pyelonephritis, Renal Calculus, UTI, Recurrent 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: Musculoskeletal History: Reports: Back Pain, Chronic, Neck Pain, Chronic, Other (See Below) Other Musculoskeletal History: Right torn rotator cuff, not repaired Psychiatric History: Reports: Anxiety, Depression Endocrine/Metabolic History: Reports: Diabetes, Type II, IDDM - Infectious Disease History Infectious Disease History: Reports: Chicken Pox - Past Surgical History GI Surgical History: Reports: Colonoscopy, Other (See Below) Female Surgical History: Reports: Section, Hysterectomy Social & Family History - Family History Family Medical History: Noncontributory - Tobacco Use Smoking Status *Q: Former Smoker Used Tobacco, but Quit: No Second Hand Smoke Exposure: Yes - Caffeine Use Caffeine Use: Reports: Coffee, Tea - Alcohol Use Days Per Week of Alcohol Use: 0 - Recreational Drug Use Recreational Drug Use: No ED ROS GENERAL - Review of Systems Review Of Systems: See Below Constitutional: Reports: No Symptoms Respiratory: Reports: No Symptoms Cardiovascular: Reports: No Symptoms GI/Abdominal: Reports: No Symptoms ED EXAM,LOWER BACK PAIN/INJURY - Physical Exam Exam: See Below Exam Limited By: No Limitations General Appearance: Alert, Mild Distress (From her pain) Head: Atraumatic, Normocephalic Neck: Normal Inspection, Supple, Non-Tender, Full Range of Motion Respiratory/Chest: No Respiratory Distress, Lungs Clear, Normal Breath Sounds Cardiovascular: Regular Rate, Rhythm, No Edema, No Murmur Back Exam: Normal Inspection, Muscle Spasm (Right greater than left), Other. No : CVA Tenderness (L), CVA Tenderness (R), Vertebral Tenderness Extremities: Normal Inspection, No Pedal Edema Neurological: Alert, Normal Mood/Affect Course - Vital Signs Last Recorded V/S: Last Vital Signs Temp 36.2 C 09/07/17 12:36 Pulse 105 H 09/07/17 12:36 Resp 20 09/07/17 12:36 BP 161/104 H 09/07/17 12:36 Pulse Ox 98 09/07/17 12:36 - Orders/Labs/Meds Meds: Medications Discontinued Medications Generic Name Dose Route Start Last Admin Trade Name [place] PRN Reason Stop Dose Admin Ketorolac Tromethamine 60 mg 09/07/17 13:22 Toradol IM 09/07/17 13:23 ONETIME ONE - Re-Assessments/Exams Free Text/Narrative Re-Assessment/Exam: 09/07/17 13:37 The patient is doing well with Toradol in the past will pursue this option at this point the patient agrees to starting her Flexeril to use 3 times daily today and tomorrow and then change to once nightly for a week after this she'll follow-up with her back physician soon she can this next week. Departure - Departure Time of Disposition: 13:23 Disposition: Home, Self-Care 01 Clinical Impression: Chronic low back pain - Discharge Information Instructions: Back Pain, Adult, [id number] Referrals: Jammie Segura, COLOR CHECKER [Primary Care Provider] - Forms: ED Department Discharge Additional Instructions: Return to the emergency room with any questions problems worsening symptoms. Start your Flexeril at home one 3 times a day today and tomorrow. Then use it nightly for about a week. Use your Percocet as usual. Follow-up with your back doctor as soon as you can early this week. No strenuous activity no heavy lifting. No work today or tomorrow while taking the Flexeril 3 times a day.
[2017-09-07] MEDS ORDERED: Ketorolac 60 MG/2 ML SDV IM ONE (13:22)
== END 2017-09-07 13:40 | disposition home or self-care (01) ==
LOC: JD.ED 12:24
DX: G89.29 Other chronic pain (principal); M54.5 Low back pain; J45.909 Unspecified asthma, uncomplicated; E11.9 Type 2 diabetes mellitus without complications; Z88.5 Allergy status to narcotic agent; Z91.010 Allergy to peanuts; Z88.1 Allergy status to other antibiotic agents; Z79.84 Long term (current) use of oral hypoglycemic drugs; Z79.4 Long term (current) use of insulin; Z79.899 Other long term (current) drug therapy; Z87.891 Personal history of nicotine dependence
CPT/HCPCS: 96372; 99283; J1885

== ENCOUNTER 2018-12-22 15:53 | Emergency (ER) | payer BC, OTHER ==
[2018-12-22 16:05] VITALS: BP 152/96
[2018-12-22] MEDS ORDERED: Ketorolac 30 MG/ML SDV IM ONE (16:43)
[2018-12-22] MEDS ORDERED: Orphenadrine 100 MG Tab.ER PO ONE (16:43)
--- NOTE | 2018-12-22 16:53 | EDM.PDOC ---
ED HPI GENERAL MEDICAL PROBLEM - General Chief Complaint: Back Pain or Injury Stated Complaint: BACK PAIN Time Seen by Provider: 12/22/18 16:05 Source of Information: Reports: Patient, Old Records, RN Notes Reviewed History Limitations: Reports: No Limitations - History of Present Illness INITIAL COMMENTS - FREE TEXT/NARRATIVE: Patient is a 48 year old female who presents to the ED for the evaluation of an exacerbation of her chronic low back pain. She notes a history of a bulged disc at L4-5. She had to do a functional capacity assessment for [facility] and felt that she "tweaked" her back. She states the pain is at a 10/10 and is worse than her normal amount of pain. She recently received a steroid injection around 1 month ago. She states that she does have pain with numbness/tingling that radiates down her right leg to her right great toe. She did take her flexeril and Percocet and this has not provided much relief. She denies any bowel/bladder dysfunction or saddle anesthesia. right lower back Pain Score (Numeric/FACES): 8 - Related Data Allergies Allergy/AdvReac Type Severity Reaction Status Date / Time hydromorphone HCl Allergy Intermediate Itching Verified 12/22/18 16:05 [From Dilaudid] levofloxacin Allergy Unknown Cannot Verified 12/22/18 16:05 Remember peanut Allergy Swollen Verified 12/22/18 16:05 Tongue Home Meds: Home Meds metFORMIN [Glucophage XR] 1,000 mg PO BID 05/18/14 [History] Albuterol Sulfate 2.5 mg IH Q4H PRN #25 ml 02/15/16 [Rx] oxyCODONE HCl/Acetaminophen [Percocet 10-325 mg Tablet] 1 each PO TID 03/13/17 [ History] Budesonide [Pulmicort] 0.5 mg NEB BIDRT PRN 03/14/17 [History] Insulin Aspart [NovoLOG] 20 unit SUBCUT BIDAC 09/07/17 [History] Cyclobenzaprine [Flexeril] 10 mg PO TID PRN 12/22/18 [History] Zolpidem [Ambien] 10 mg PO BEDTIME 12/22/18 [History] Past Medical History HEENT History: Reports: Other (See Below) Other HEENT History: Wears glasses, at home Respiratory History: Reports: Asthma, SOB Gastrointestinal History: Reports: Chronic Constipation, GERD Genitourinary History: Reports: Pyelonephritis, Renal Calculus, UTI, Recurrent [employer] History: Reports: Musculoskeletal History: Reports: Back Pain, Chronic, Neck Pain, Chronic, Other (See Below) Other Musculoskeletal History: Right torn rotator cuff, not repaired Psychiatric History: Reports: Anxiety, Depression Endocrine/Metabolic History: Reports: Diabetes, Type II, IDDM - Infectious Disease History Infectious Disease History: Reports: Chicken Pox - Past Surgical History GI Surgical History: Reports: Colonoscopy Female Surgical History: Reports: Section, Hysterectomy Social & Family History - Family History Family Medical History: Noncontributory - Tobacco Use Smoking Status *Q: Never Smoker - Caffeine Use Caffeine Use: Reports: Coffee - Recreational Drug Use Recreational Drug Use: No ED ROS GENERAL - Review of Systems Review Of Systems: See Below Constitutional: Reports: No Symptoms HEENT: Reports: No Symptoms Respiratory: Reports: No Symptoms Cardiovascular: Reports: No Symptoms Endocrine: Reports: No Symptoms GI/Abdominal: Reports: No Symptoms : Reports: No Symptoms Musculoskeletal: Reports: Back Pain (chronic low back pain) Skin: Reports: No Symptoms Neurological: Reports: Numbness (to right leg), Tingling (to right leg) Psychiatric: Reports: No Symptoms Hematologic/Lymphatic: Reports: No Symptoms Immunologic: Reports: No Symptoms ED EXAM,LOWER BACK PAIN/INJURY - Physical Exam Exam: See Below Exam Limited By: No Limitations General Appearance: Alert, WD/WN, No Apparent Distress Ears: Normal External Exam Nose: Normal Inspection Throat/Mouth: Normal Inspection, Normal Oropharynx Head: Atraumatic, Normocephalic Neck: Normal Inspection, Supple, Non-Tender, Full Range of Motion Respiratory/Chest: No Respiratory Distress, Lungs Clear, Normal Breath Sounds, No Accessory Muscle Use, Chest Non-Tender Cardiovascular: Normal Peripheral Pulses, Regular Rate, Rhythm, No Murmur GI/Abdominal: Normal Bowel Sounds, Soft, Non-Tender, No Distention, No Mass Back Exam: Normal Inspection, Decreased Range of Motion (due to pain. Pt has point tenderness to L4-L5 area), Muscle Spasm (lumbar area) Extremities: Normal Inspection, Normal Capillary Refill Neurological: Alert, Normal Mood/Affect, Normal Dorsiflexion, Normal Plantar Flexion, Normal Gait, Normal Reflexes, No Motor/Sensory Deficits, Oriented x 3, Straight Leg Raise (R). No: Straight Leg Raise (L), Saddle Anesthesia, Difficulty Walking Psychiatric: Normal Affect, Normal Mood Skin Exam: Warm, Dry, Intact, Normal Color, No Rash Course - Vital Signs Last Recorded V/S: Last Vital Signs Temp 97 F 12/22/18 15:55 Pulse 117 H 12/22/18 15:55 Resp 18 12/22/18 15:55 BP 152/96 H 12/22/18 15:55 Pulse Ox 96 12/22/18 15:55 - Orders/Labs/Meds Meds: Medications Discontinued Medications Generic Name Dose Route Start Last Admin Trade Name [place] PRN Reason Stop Dose Admin Diazepam 5 mg 12/22/18 17:48 12/22/18 18:02 Valium. PO 12/22/18 17:49 5 mg ONETIME ONE Administration Ketorolac Tromethamine 30 mg 12/22/18 16:43 12/22/18 16:56 Toradol IM 12/22/18 16:44 30 mg ONETIME ONE Administration Orphenadrine Citrate 100 mg 12/22/18 16:43 12/22/18 16:56 Norflex PO 12/22/18 16:44 100 mg ONETIME ONE Administration - Re-Assessments/Exams Free Text/Narrative Re-Assessment/Exam: 12/22/18 16:55 Pt presents to the ED for the evaluation of acute on chronic lower back pain. Have ordered 30 mg IM toradol and 100mg PO Norflex for pain management to see if this doesn't help. The patient states that steroids really make her blood sugars go crazy, so I have not ordered any steroids so far. 12/22/18 17:51 Pt re-assessed at bedside, and the pain is not much better. Have ordered 5mg Valium PO to see if this doesn't provide some relief. 12/22/18 18:46 Pt states that she doesn't think the valium helped much, she is requesting to go home as she is due for her scheduled Percocet. I am okay with this. Pt will be discharged home. Departure - Departure Time of Disposition: 18:45 Disposition: Home, Self-Care 01 Condition: Fair Clinical Impression: Low back pain Qualifiers: Chronicity: chronic Back pain laterality: right Sciatica presence: with sciatica Sciatica laterality: sciatica of right side Qualified Code(s): M54.41 - Lumbago with sciatica, right side - Discharge Information *PRESCRIPTION DRUG MONITORING PROGRAM REVIEWED*: No *COPY OF PRESCRIPTION DRUG MONITORING REPORT IN PATIENT NAI: No Instructions: Back Pain, Adult, [id number] Referrals: PCP,None [Primary Care Provider] - Forms: ED Department Discharge Additional Instructions: You have been evaluated in the ED for your low back pain. Please take your normal prescriptions as previously prescribed. Please return to the ED if your symptoms should change or worsen.
[2018-12-22] MEDS ORDERED: Diazepam 5 MG Tab PO ONE (17:48)
== END 2018-12-22 18:55 | disposition home or self-care (01) ==
LOC: JD.ED 15:53
DX: M54.41 Lumbago with sciatica, right side (principal); F41.9 Anxiety disorder, unspecified; F32.9 Major depressive disorder, single episode, unspecified; E11.9 Type 2 diabetes mellitus without complications; Z79.4 Long term (current) use of insulin; Z88.8 Allergy status to other drugs, medicaments and biological substances; Z88.5 Allergy status to narcotic agent; Z91.010 Allergy to peanuts; Z79.899 Other long term (current) drug therapy
CPT/HCPCS: 96372; 99283; A9270; J1885